=== PATIENT | male | born 1935 | race Caucasian/White ===

== ENCOUNTER 2019-12-16 21:12 | Inpatient (IN) ==
[2019-12-16] MEDS ORDERED: SODIUM CHLORIDE 0.9% 1000ML 500 ML IV ONE (21:32)
--- NOTE | 2019-12-16 21:36 | Emergency Department Note ---
Impression & Plan Hematoma of left flank, Fall, Elevated INR ED Provider Note NAME: BEAU HUMPHREY AGE: 84 SEX: M : 1935 ARRIVES VIA: Ambulance INFORMANT: Patient, ED PROVIDER(S): Zachery Solano MD Chief Complaint: Fall, flank pain HPI: Patient does present from home. The patient has had increasing weakness with a recent fall. The patient states he is fallen approximate 5 times of the last 5 days. The patient does complain of some one-sided flank pain. Patient states it is been constant. The patient states that he fell around 545 this evening. Patient states his appetite is been okay. 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 He does see Dr. De Leon. The patient did not take any pain medication prior to arrival. The patient does take Coumadin. ROS: See HPI for pertinent positives and negatives. A total of 10 systems were reviewed and otherwise negative. Past medical history: See below Surgical history: See below Social history: See below Physical Exam: GENERAL: NAD, non-toxic. Wearing a mask. EYE EXAM: Normal conjunctiva. PERRL, no anisocoria and EOM's grossly intact w/o pain. NECK: Missing numerous upper teeth, no obvious deformity. FROM of the neck with good chin to chest and neck extension. No stridor. Patient does have irritation to the skin with granulation tissue. LUNGS: Clear to auscultation. Normal chest wall mechanics. HEART: NSR, no MRG. ABDOMEN: Abdomen soft, non-tender, normo-active bowel sounds, no masses, no re bound or guarding. BACK: No CVA TTP. SKIN: Patient does have bruising to the bilateral flank. Hematoma and pain to left flank. UPPER EXTREMITIES: Upper extremities are grossly normal. LOWER EXTREMITIES: Deformity and shortening of the right ankle. Good DP pulse. No swelling. Good and equal symmetric strength bilaterally in the lower extremities. No sensory deficits. NEURO EXAM: A&O x3, cranial nerves II-XII grossly intact, normal speech, moves all 4 extremities on command w/o issue. Differential diagnoses: Fracture, dislocation, contusion, intra-abdominal, pneumothorax, intrathoracic, intracranial, neurologic, compartment syndrome, rhabdomyolysis, as well as other pathologies. Course: Patient was seen and evaluated the bedside. A full history and physical exam was performed. EKG: Indication: Fall, weakness A. fib, rate of 95, normal QRS, left axis deviation, no ST changes. Imaging Studies: Radiology results as stated below per my review in the radiologist's interpretation: CT head/brain wo con CT DOSE: HISTORY: Trauma multiple falls on coumadin TECHNIQUE: Multiaxial CT images of the head were performed without the use of intravenous contrast. A dose lowering technique was utilized adhering to the principles of ALARA. Comparison: None. Findings: The paranasal sinuses and mastoid air cells are clear. The calvarium and skull base are intact. The ventricles and sulci are within normal limits. There is no mass, hematoma, midline shift, or acute infarct. Considerable atrophy and small vessel change. No acute intracranial hemorrhage. Impression: No acute intracranial abnormality. Considerable atrophy and chronic small vessel change. ACT 112: Negative or not required by law. The above report was generated using voice recognition software. It may contain grammatical, syntax or spelling errors. Electronically signed by: Gildardo Cole M.D. 12/16/2019 10:23 PM Dictated: 12/16/192220 Transcribed: 12/16/192220 CT chest w con CT DOSE: 1948.12 mGy.cm HISTORY: Trauma multiple falls on coumadin TECHNIQUE: Multiaxial CT images of the chest were performed following the intravenous administration of contrast. A dose lowering technique was utilized adhering to the principles of ALARA. COMPARISON: None. FINDINGS: Severe degenerative change of the shoulders bilaterally. Probable bilateral degenerative joint effusions. Lungs are considered clear. Mild esophageal distention possibly on the basis of reflux. No significant hilar or mediastinal adenopathy. Mild dependent bibasilar atelectatic change. Significant degenerative change of the low thoracic region. No evidence for a compression deformity. IMPRESSION: 1. No acute process of the chest. 2. Significant degenerative change of the low thoracic spine with no evidence for compression deformity. 3. Severe degenerative change of the shoulders bilaterally with evidence for moderate degenerative joint effusions bilaterally. 4. Mild esophageal distention with moderate contained debris suggesting probable reflux. ACT 112: Negative or not required by law. The above report was generated using voice recognition software. It may contain grammatical, syntax or spelling errors. Electronically signed by: Gildardo Cole M.D. 12/16/2019 10:29 PM Dictated: 12/16/192224 Transcribed: 12/16/192224 CT cervical spine wo con CT DOSE: HISTORY: Trauma multiple falls on coumadin TECHNIQUE: Multiaxial CT images of the cervical spine were performed and reformatted in the sagittal and coronal plane without the use of contrast. A dose lowering technique was utilized adhering to the principles of ALARA. COMPARISON: None. FINDINGS: No fractures. No subluxation. Prevertebral soft tissues and the C1-C2 interval are intact. No pneumothorax. Considerable degenerative disc changes throughout. Considerable degenerative change vertebral endplates. No evidence fo r compression deformity. IMPRESSION: Considerable degenerative change. No acute process. ACT 112: Negative or not required by law. The above report was generated using voice recognition software. It may contain grammatical, syntax or spelling errors. Electronically signed by: Gildardo Cole M.D. 12/16/2019 10:25 PM Dictated: 12/16/192222 Transcribed: 12/16/192222 CT abd pelvis IV con only CT DOSE: HISTORY: Pain multiple falls on coumadin, hematoma L flank TECHNIQUE: Multiaxial CT images of the abdomen and pelvis were performed following the use of intravenous contrast. A dose lowering technique was utilized adhering to the principles of ALARA. COMPARISON STUDY: None. FINDINGS: Minimal dependent basilar atelectasis. The liver spleen and pancreas are grossly unremarkable. Kidneys show moderate cortical scarring bilaterally. Prior cholecystectomy. Nonobstructive bowel pattern. No free fluid within the abdomen or pelvic region. Bladder is midline. Mild rectal fecal impaction. Subcutaneous hematoma overlying the left flank lateral to the left iliac wing measuring approximately 12 x 10 x 8 cm. Severe degenerative change of the lumbar spine with no evidence for compression fracture. All remaining bony structures show degenerative changes throughout. IMPRESSION: 1. Large hematoma subcutaneous tissues left flank lateral to left iliac wing. 2. This measures 12 x 10 x 8 cm 3. 2 small foci of increased density within the hematoma which potentially indic ate a small amount of residual bleeding. .. 4. Moderate rectal fecal impaction. . 5. Otherwise no additional acute process of the abdomen or pelvis. ACT 112: Negative or not required by law. The above report was generated using voice recognition software. It may contain grammatical, syntax or spelling errors. Electronically signed by: Gildardo Cole M.D. 12/16/2019 10:36 PM Dictated: 12/16/192228 Transcribed: 12/16/192228 Cardiac monitoring: An order was placed for continuous cardiac monitoring. The monitor shows a rate of 95 with atrial fibrillation rhythm. MDM: Patient was seen and evaluated the bedside. The patient does present with concern for fall and flank pain with associated hematoma. The patient does use Coumadin. Blood work was obtained along with blood cultures. Patient did have CTs of the head neck chest abdomen and pelvis. Patient's blood work shows hemoglobin of almost 11. Prior was 14. Patient CT the head neck and chest unremarkable. CT abdomen pelvis does show the patient does have a large hematoma. There may be some trace residual bleeding. Given the patient's drop in hemoglobin and supratherapeutic INR I did speak with Dr. Santizo do we did agree that the patient would benefit from Kcentra. Vitamin K was also ordered. I did speak with the on-call hospitalist given the concern that the patient only has a hematoma and if you would be willing to see the patient as the patient has no other acute traumatic abnormality is currently not hypotensive and did receive vitamin K and was actively receiving Kcentra. He agreed to see the patient at this time. I believe this is reasonable as the patient has no other acute traumatic injury. The patient does have an old deformity of the right ankle but this is chronic per the patient. Patient has good DP pulses there as well. Patient's EKG is unchanged as the patient has a known history of A. fib. Past Med/Surg History Medical History A-fib Acquired ankle deformity Astigmatism Carpal tunnel syndrome left DDD (degenerative disc disease) Diverticulosis Frozen shoulder Ganglion left wrist / surgery GERD (gastroesophageal reflux disease) History of tongue cancer NOME (hard of hearing) HTN (hypertension) Impaired glucose tolerance Impotence Internal hemorrhoids Intestinal disaccharidase deficiency Kidney disease, chronic, stage III (GFR 30-59 ml/min) Mild pulmonary hypertension Osteoarthritis Overweight Presbyopia Sensorineural hearing loss Squamous cell carcinoma Surgical History H/O carpal tunnel repair bilateral surgery H/O glossectomy surgery 10/2018 History of radical dissection of left side of neck surgery 10/2018 History of repair of inguinal hernia History of shoulder surgery surgery many years ago / it healed improperly S/P cholecystectomy S/P tonsillectomy and adenoidectomy Family History Mother , age 77 Breast cancer metastatic to bone Father , age 83 Myocardial infarction Brother No problems noted. Daughter No problems noted. Son No problems noted. Son No problems noted. 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 Feels Safe at Home: Yes Smoking Status: Never smoker Hx Alcohol Use: Yes Alcohol type: beer Alcohol type Comment: occasional beer / social drinker Hx Substance Use: No Allergies Allergies Allergy/AdvReac Type Severity Reaction Status Date / Time oxycodone Allergy Severe Hallucinati Verified 12/16/19 21:36 ng peanut Allergy Severe Anaphylaxis Verified 12/16/19 21:36 Home Meds Home Medications Medication Instructions Recorded Confirmed aspirin [Aspirin Low Dose] 81 mg PO QAM 10/19/18 12/16/19 docusate sodium [Stool Softener] 100 mg PO QAM 10/19/18 12/16/19 enalapril maleate 20 mg PO QAM 10/19/18 12/16/19 glucosamine-chondroitin 1 tab PO QAM 10/19/18 12/16/19 lactobacillus combination no.4 3,000 mmu cells PO QAM 10/19/18 12/16/19 [Probiotic] metoprolol tartrate 50 mg PO BID 10/19/18 12/16/19 multivitamin 1 tab PO QAM 10/19/18 12/16/19 omeprazole 20 mg PO QAM 10/19/18 12/16/19 warfarin 2.5 mg PO UD 10/19/18 11/18/19 acetaminophen [Tylenol Extra 500 mg PO Q6H PRN 09/24/19 12/16/19 Strength] amlodipine 2.5 mg PO QAM 09/24/19 12/16/19 Mbxc 2 tsp PO ACHS PRN 12/16/19 12/16/19 Previous Rx's Medication Instructions Recorded acetaminophen 300 mg-codeine 30 mg 1 tab PO Q6H PRN #30 tab 10/21/19 tablet silver sulfadiazine 1 % topical 1 applic TOP BID #85 gm 11/11/19 cream tramadol 50 mg tablet 100 mg PO Q8H PRN #60 tab 11/26/19 Results & Data (ED) Vital Signs Vital Signs - 24 hr 12/16/19 21:20 12/16/19 21:23 12/16/19 23:24 Temperature 36.9 C Temperature Source Oral Pulse Rate 91 H 90 Pulse Rate [Apical] 90 Respiratory Rate 24 18 16 Respiratory Effort / Characteristics Non-Labored Spontaneous Non-Labored Spontaneous Respiratory Depth Normal Normal Blood Pressure 90/74 L 118/88 Blood Pressure [Left Arm] 140/99 Blood Pressure Mean 79 100 Blood Pressure Mean [Left Arm] 112 Blood Pressure Position Sitting Blood Pressure Position [Left Arm] Sitting Pulse Oximetry 95 94 Oxygen Delivery Method Room Air Room Air Sepsis Recent Fever Within 48 Hours No Sepsis Action Taken by Nursing No Action Required Home Medications Current Medication List: was personally reviewed by me Laboratory Data Attestation: I reviewed the patient's lab results. Result diagrams: 12/16/19 22:50 12/16/19 22:50 Lab Results 12/16/19 12/16/19 12/16/19 Range/Units 22:50 22:50 22:50 WBC 6.69 (4.8-10.8) K/uL RBC 3.39 L (4.7-6.1) M/uL Hgb 10.9 L (14.0-18.0) g/dL Hct 33.1 L (42-52) % MCV 97.6 (80-100) fL MCH 32.2 (25-34) pg MCHC 32.9 (32-36) g/dL RDW Std Deviation 54.4 H (36.4-46.3) fL RDW Coeff of Matthias 15.4 H (11.5-14.5) % Plt Count 342 (130-400) K/uL MPV 9.1 (7.4-10.4) fL Immature Gran % (Auto) 0.1 % Neut % (Auto) 83.0 % Lymph % (Auto) 8.5 % [place] % (Auto) 8.2 % Eos % (Auto) 0.1 % Baso % (Auto) 0.1 % Immature Gran # (Auto) 0.01 (0.00-0.02) K/uL Neut # (Auto) 5.54 (1.4-6.5) K/uL Lymph # (Auto) 0.57 L (1.2-3.4) K/uL [place] # (Auto) 0.55 (0.11-0.59) K/uL Eos # (Auto) 0.01 (0-0.5) K/uL Baso # (Auto) 0.01 (0-0.2) K/uL PT 42.4 H (9.0-12.0) Seconds POC INR (0.9-1.1) INR 4.4 H (0.9-1.1) Sodium (136-145) mmol/L Potassium (3.5-5.1) mmol/L Chloride (98-107) mmol/L Carbon Dioxide (21-32) mmol/L Anion Gap (3-11) BUN (7-18) mg/dl Creatinine (0.6-1.4) mg/dl Est Cr Clr Drug Dosing Est GFR ( Amer) Est GFR (Non-Af Amer) BUN/Creatinine Ratio (10-20) Glucose (70-99) mg/dl Lactate 1.7 (0.4-2.0) mmol/L Calcium (8.5-10.1) mg/dl Total Bilirubin (0.2-1) mg/dl AST (15-37) U/L ALT (12-78) U/L Alkaline Phosphatase (45-117) U/L Troponin I (0-0.045) ng/ml Total Protein (6.4-8.2) gm/dl Albumin (3.4-5.0) gm/dl Globulin (2.5-4.0) gm/dl Albumin/Globulin Ratio (0.9-2) 12/16/19 12/16/19 Range/Units 22:50 22:57 WBC (4.8-10.8) K/uL RBC (4.7-6.1) M/uL Hgb (14.0-18.0) g/dL Hct (42-52) % MCV (80-100) fL MCH (25-34) pg MCHC (32-36) g/dL RDW Std Deviation (36.4-46.3) fL RDW Coeff of Matthias (11.5-14.5) % Plt Count (130-400) K/uL MPV (7.4-10.4) fL Immature Gran % (Auto) % Neut % (Auto) % Lymph % (Auto) % [place] % (Auto) % Eos % (Auto) % Baso % (Auto) % Immature Gran # (Auto) (0.00-0.02) K/uL Neut # (Auto) (1.4-6.5) K/uL Lymph # (Auto) (1.2-3.4) K/uL [place] # (Auto) (0.11-0.59) K/uL Eos # (Auto) (0-0.5) K/uL Baso # (Auto) (0-0.2) K/uL PT (9.0-12.0) Seconds POC INR 4.5 H (0.9-1.1) INR (0.9-1.1) Sodium 135 L (136-145) mmol/L Potassium 4.5 (3.5-5.1) mmol/L Chloride 100 (98-107) mmol/L Carbon Dioxide 30 (21-32) mmol/L Anion Gap 5.0 (3-11) BUN 18 (7-18) mg/dl Creatinine 1.05 (0.6-1.4) mg/dl Est Cr Clr Drug Dosing Not Reportable Est GFR ( Amer) 75.2 Est GFR (Non-Af Amer) 64.9 BUN/Creatinine Ratio 17.0 (10-20) Glucose 149 H (70-99) mg/dl Lactate (0.4-2.0) mmol/L Calcium 9.0 (8.5-10.1) mg/dl Total Bilirubin 0.7 (0.2-1) mg/dl AST 27 (15-37) U/L ALT 23 (12-78) U/L Alkaline Phosphatase 88 (45-117) U/L Troponin I < 0.015 (0-0.045) ng/ml Total Protein 6.4 (6.4-8.2) gm/dl Albumin 2.6 L (3.4-5.0) gm/dl Globulin 3.8 (2.5-4.0) gm/dl Albumin/Globulin Ratio 0.7 L (0.9-2) Administered Medications Prothrombin Complex Concent ( (Human) 2,500 units/ Syringe) 100 mls @ 10 mls/min IV TODAY@2330 [facility]; Protocol Stop: 12/16/19 23:59 Last Admin: 12/16/19 23:28 Dose: 10 mls/min Documented by: [id number] Ioversol (Optiray 320 100ml) 93 ml IV ONCE PRN PRN Reason: Interaction Checking Stop: 12/20/19 21:37 Last Admin: 12/16/19 21:39 Dose: 93 ml Documented by: [id number] Discontinued Medications Sodium Chloride (Nss 1000ml) 500 mls @ 999 mls/hr IV .Q31M ONE Stop: 12/16/19 22:02 Last Admin: 12/16/19 23:13 Dose: 999 mls/hr Documented by: [id number] Miscellaneous Information (Dc All Anticoagulants) 1 ea N/A NOW ONE Stop: 12/16/19 23:10 Last Admin: 12/16/19 23:22 Dose: 1 ea Documented by: [id number] Blood Pressure Blood Pressure Findings: Elevated blood pressure Blood Pressure Disposition: further management by hospitalist Discharge Plan Visit Data Chief Complaint: Fall Stated Complaint: FALL, WEAKER, HEMATOMA ON L SIDE ED Provider: Zachery Solano Discharge Problem: Hematoma of left flank, Fall, Elevated INR Forms Stand Alone Forms: [employer] Prescriptions Prescriptions: No Action acetaminophen-codeine [Tylenol-Codeine #3] 300-30 mg tablet 1 tab PO Q6H PRN (Reason: pain) Qty: 30 RF: 1 silver sulfadiazine [Silvadene] 1 % cream 1 applic TOP BID Qty: 85 RF: 3 tramadol 50 mg tablet 100 mg PO Q8H PRN (Reason: pain) Qty: 60 RF: 0 multivitamin Tablet 1 tab PO QAM RF: 0 enalapril maleate 20 mg tablet 20 mg PO QAM RF: 0 warfarin 2.5 mg tablet 2.5 mg PO UD RF: 0 aspirin [Aspirin Low Dose] 81 mg Tablet,Delayed Release (Dr/Ec) 81 mg PO QAM RF: 0 metoprolol tartrate 50 mg tablet 50 mg PO BID RF: 0 docusate sodium [Stool Softener] 100 mg Capsule 100 mg PO QAM RF: 0 omeprazole 20 mg Capsule,Delayed Release(Dr/Ec) 20 mg PO QAM RF: 0 glucosamine-chondroitin 250-200 mg Tablet 1 tab PO QAM RF: 0 Probiotic 3 billion cell Capsule 3,000 mmu cells PO QAM RF: 0 amlodipine 2.5 mg tablet 2.5 mg PO QAM RF: 0 acetaminophen [Tylenol Extra Strength] 500 mg Tablet 500 mg PO Q6H PRN (Reason: Pain) RF: 0 Mbxc 2 tsp PO ACHS PRN (Reason: unk) RF: 0 Discharge Problem: Hematoma of left flank Qualifiers: Encounter type: initial encounter Qualified Code(s): S30.1XXA - Contusion of abdominal wall, initial encounter Fall Qualifiers: Encounter type: initial encounter Qualified Code(s): W19.XXXA - Unspecified fall, initial encounter
[2019-12-16] MEDS ORDERED: IOVERSOL 100ml IV PRN (21:38)
--- NOTE | 2019-12-16 22:24 | CT Scan Report ---
CT head/brain wo con CT DOSE: HISTORY: Trauma multiple falls on coumadin TECHNIQUE: Multiaxial CT images of the head were performed without the use of intravenous contrast. A dose lowering technique was utilized adhering to the principles of ALARA. Comparison: None. Findings: The paranasal sinuses and mastoid air cells are clear. The calvarium and skull base are int act. The ventricles and sulci are within normal limits. There is no mass, hematoma, midline shift, or acute infarct. Considerable atrophy and small vessel change. No acute intracranial hemorrhage. Impression: No acute intracranial abnormality. Considerable atrophy and chronic small vessel change. ACT 112: Negative or not required by law. The above report was generated using voice recognition software. It may contain grammatical, syntax or spelling errors. Electronically signed by: Gildardo Cole M.D. 12/16/2019 10:23 PM
--- NOTE | 2019-12-16 22:26 | CT Scan Report ---
CT cervical spine wo con CT DOSE: HISTORY: Trauma multiple falls on coumadin TECHNIQUE: Multiaxial CT images of the cervical spine were performed and reformatted in the sagittal and coronal plane without the use of contrast. A dose lowering technique was utilized adhering to th e principles of ALARA. COMPARISON: None. FINDINGS: No fractures. No subluxation. Prevertebral soft tissues and the C1-C2 interval are intact. No pneumothorax. Considerable degenerative disc changes throughout. Considerable degenerative change vertebral endplates. No evidence for compression deformity. IMPRESSION: Considerable degenerative change. No acute process. ACT 112: Negative or not required by law. The above report was generated using voice recognition software. It may contain grammatical, syntax or spelling errors. Electronically signed by: Gildardo Cole M.D. 12/16/2019 10:25 PM
--- NOTE | 2019-12-16 22:31 | CT Scan Report ---
CT chest w con CT DOSE: 1948.12 mGy.cm HISTORY: Trauma multiple falls on coumadin TECHNIQUE: Multiaxial CT images of the chest were performed following the intravenous administration of contrast. A dose lowering technique was utilized adhering to the principles of ALARA. COMPARISON: None. FINDINGS: Severe degenerative change of the shoulders bilaterally. Probable bilateral degenerative suyapa int effusions. Lungs are considered clear. Mild esophageal distention possibly on the basis of reflux. No significan t hilar or mediastinal adenopathy. Mild dependent bibasilar atelectatic change. Significant degenerative change of the low thoracic region. No evidence for a compression deformity. IMPRESSION: 1. No acute process of the chest. 2. Significant degenerative change of the low thoracic spine with no evidence for compression deformi ty. 3. Severe degenerative change of the shoulders bilaterally with evidence for moderate degenerative suyapa int effusions bilaterally. 4. Mild esophageal distention with moderate contained debris suggesting probable reflux. ACT 112: Negative or not required by law. The above report was generated using voice recognition software. It may contain grammatical, syntax or spelling errors. Electronically signed by: Gildardo Cole M.D. 12/16/2019 10:29 PM
--- NOTE | 2019-12-16 22:38 | CT Scan Report ---
CT abd pelvis IV con only CT DOSE: HISTORY: Pain multiple falls on coumadin, hematoma L flank TECHNIQUE: Multiaxial CT images of the abdomen and pelvis were performed following the use of intrave nous contrast. A dose lowering technique was utilized adhering to the principles of ALARA. COMPARISON STUDY: None. FINDINGS: Minimal dependent basilar atelectasis. The liver spleen and pancreas are grossly unremarkab le. Kidneys show moderate cortical scarring bilaterally. Prior cholecystectomy. Nonobstructive bowel pattern. No free fluid within the abdomen or pelvic region. Bladder is midline. Mild rectal fecal impaction. Subcutaneous hematoma overlying the left flank lateral to the left iliac wing measuring approximately 12 x 10 x 8 cm. Severe degenerative change of the lumbar spine with no evidence for compression fracture. All remaini ng bony structures show degenerative changes throughout. IMPRESSION: 1. Large hematoma subcutaneous tissues left flank lateral to left iliac wing. 2. This measures 12 x 10 x 8 cm 3. 2 small foci of increased density within the hematoma which potentially indicate a small amount of residual bleeding. .. 4. Moderate rectal fecal impaction. . 5. Otherwise no additional acute process of the abdomen or pelvis. ACT 112: Negative or not required by law. The above report was generated using voice recognition software. It may contain grammatical, syntax or spelling errors. Electronically signed by: Gildardo Cole M.D. 12/16/2019 10:36 PM
[2019-12-16 23:05] LABS: Basophils # (auto) 0.01 K/uL (0-0.2); Basophils % (auto) 0.1 %; Eosinophils # (auto) 0.01 K/uL (0-0.5); Eosinophils % (auto) 0.1 %; Hematocrit (blood only) 33.1 % (42-52); Hemoglobin 10.9 g/dL (14.0-18.0); Immature Granulocytes # (auto) 0.01 K/uL (0.00-0.02); Immature Granulocytes % (auto) 0.1 %; Lymphocytes # (auto) 0.57 K/uL (1.2-3.4); Lymphocytes % (auto) 8.5 %; Mean Corpuscular Hemoglobin 32.2 pg (25-34); Mean Corpuscular Hgb Conc 32.9 g/dL (32-36); Mean Corpuscular Volume 97.6 fL (80-100); Mean Platelet Volume 9.1 fL (7.4-10.4); Monocytes # (auto) 0.55 K/uL (0.11-0.59); Monocytes % (auto) 8.2 %; Neutrophils # (auto) 5.54 K/uL (1.4-6.5); Platelet Count 342 K/uL (130-400); RDW Coefficient of Variation 15.4 % (11.5-14.5); RDW Standard Deviation 54.4 fL (36.4-46.3); Red Blood Count 3.39 M/uL (4.7-6.1); White Blood Count 6.69 K/uL (4.8-10.8)
[2019-12-16] MEDS ORDERED: DC ALL ANTICOAGULANTS ONE (23:09)
[2019-12-16] MEDS ORDERED: PHYTONADIONE 10 MG in SODIUM CHLORIDE 0.9% 50 ML IV ONE (23:14)
[2019-12-16 23:22] LABS: Alanine Aminotransferase 23 U/L (12-78); Albumin Level 2.6 gm/dl (3.4-5.0); Aspartate Aminotransferase 27 U/L (15-37); Blood Urea Nitrogen 18 mg/dl (7-18); Carbon Dioxide 30 mmol/L (21-32); Chloride 100 mmol/L (98-107); Est GFR (African American) 75.2; Est GFR (Non-African American) 64.9; Glucose 149 mg/dl (70-99); Potassium 4.5 mmol/L (3.5-5.1); Sodium 135 mmol/L (136-145)
[2019-12-16 23:23] LABS: INR 4.4 (0.9-1.1); Prothrombin Time 42.4 Seconds (9.0-12.0)
[2019-12-16 23:27] LABS: Albumin Globulin Ratio 0.7 (0.9-2); Alkaline Phosphatase 88 U/L (45-117); Bilirubin,Total 0.7 mg/dl (0.2-1); Globulin 3.8 gm/dl (2.5-4.0); Total Protein 6.4 gm/dl (6.4-8.2); Troponin I < 0.015 ng/ml (0-0.045)
[2019-12-16] MEDS ORDERED: PROTHROMBIN COMP CONC- KCENTRA 2,500 UNITS in SYRINGE 0 ML IV SCH (23:30)
--- NOTE | 2019-12-16 23:32 | History & Physical Report ---
Date of Service December 16, 2019 Assessment & Plan (1) Hematoma of left flank: Secondary to Coumadin coagulopathy AF on Coumadin, rate controlled Recurrent falls, ambulatory dysfunction Anemia secondary to above hypertension, slight elevated secondary discomfort tongue cancer status post surgery, chemoradiation with recurrent neck disease status post chemoradiation. prediabetes as per records hemoglobin A1c of 6.05 October 2018 Chronic cough possibly from aspiration risk Medical telemetry Prudent to stop Coumadin given fall risk Serial H&H, transfuse PRBC if hemoglobin less than 7 and or for symptomatic anemia Analgesia, facilitate home BP meds Swallow eval PT OT eval DVT prophylaxis SCDs RE hematoma Full code Text document was generated using [employer] voice recognition software. It may contain grammatical or spelling errors. Kindly contact undersigned for clarification of any documentation item in question. History of Present Illness Chief Complaint: Recurrent falls Primary Care Provider: Yogi Bonilla MD History obtained from patient and records. Medical history significant for A. fib on Coumadin, pulmonary hypertension as per records, hypertension, tongue cancer status post surgery, chemoradiation with recurrent neck disease status post chemoradiation. prediabetes as per records. Patient developed new onset A. fib. during confinement at [facility] for neck dissection/glossectomy 2018. Seen by [facility] tellers supervisor on consultation. Patient discharged on Coumadin. Has not seen a tellers supervisor outpatient for follow-up. The last few days patient noted increasing weakness and recurrent falls with some head trauma. No chest pain, no S OB, no LOC. Chronic junky cough symptoms. No black/bloody stools. Subsequently noted achy flank pain. Headache symptoms from bump in the head. Patient brought to the ER for evaluation. Vitamin K and Kcentra administered at the ER for coagulopathy, INR of 4.5. 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 Allergies Allergy/AdvReac Type Severity Reaction Status Date / Time oxycodone Allergy Severe Hallucinati Verified 12/16/19 21:36 ng peanut Allergy Severe Anaphylaxis Verified 12/16/19 21:36 Home Medications Home Medications Medication Instructions Recorded Confirmed Type aspirin [Aspirin Low Dose] 81 mg PO QAM 10/19/18 12/16/19 History docusate sodium [Stool Softener] 100 mg PO QAM 10/19/18 12/16/19 History enalapril maleate 20 mg PO QAM 10/19/18 12/16/19 History glucosamine-chondroitin 1 tab PO QAM 10/19/18 12/16/19 History lactobacillus combination no.4 3,000 mmu cells PO QAM 10/19/18 12/16/19 History [Probiotic] metoprolol tartrate 50 mg PO BID 10/19/18 12/16/19 History multivitamin 1 tab PO QAM 10/19/18 12/16/19 History omeprazole 20 mg PO QAM 10/19/18 12/16/19 History warfarin 2.5 mg PO UD 10/19/18 11/18/19 History acetaminophen [Tylenol Extra 500 mg PO Q6H PRN 09/24/19 12/16/19 History Strength] amlodipine 2.5 mg PO QAM 09/24/19 12/16/19 History acetaminophen 300 mg-codeine 30 mg 1 tab PO Q6H PRN #30 tab 10/21/19 12/16/19 Rx tablet silver sulfadiazine 1 % topical 1 applic TOP BID #85 gm 11/11/19 12/16/19 Rx cream tramadol 50 mg tablet 100 mg PO Q8H PRN #60 tab 11/26/19 12/16/19 Rx Mbxc 2 tsp PO ACHS PRN 12/16/19 12/16/19 History Past Med/Surg History Medical History A-fib Acquired ankle deformity Astigmatism Carpal tunnel syndrome left DDD (degenerative disc disease) Diverticulosis Frozen shoulder Ganglion left wrist / surgery GERD (gastroesophageal reflux disease) History of tongue cancer [place] (hard of hearing) HTN (hypertension) Impaired glucose tolerance Impotence Internal hemorrhoids Intestinal disaccharidase deficiency Kidney disease, chronic, stage III (GFR 30-59 ml/min) Mild pulmonary hypertension Osteoarthritis Overweight Presbyopia Sensorineural hearing loss Squamous cell carcinoma Surgical History H/O carpal tunnel repair bilateral surgery H/O glossectomy surgery 10/2018 History of radical dissection of left side of neck surgery 10/2018 History of repair of inguinal hernia History of shoulder surgery surgery many years ago / it healed improperly S/P cholecystectomy S/P tonsillectomy and adenoidectomy Family History Mother , age 77 Breast cancer metastatic to bone Father , age 83 Myocardial infarction Brother No problems noted. Daughter No problems noted. Son No problems noted. Son No problems noted. 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 Other Information That Helps Us Care for You: No Feels Safe at Home: Yes Safety Concerns: Feels Safe At This Time Smoking Status: Never smoker Do You Dip or Chew Tobacco: No ; Second Hand Exposure: Yes ; Hx Alcohol Use: Yes Alcohol type: beer Alcohol type Comment: occasional beer / social drinker Hx Substance Use: No Review of Systems Review of Systems: As per HPI, all 10 systems reviewed, all other ROS negative Physical Exam Physical Exam: GENERAL: Comfortable, pleasant, slightly hard of hearing, no respiratory distress SKIN: Pallor , warm HEENT: Contusion left forehead, pale palpebral conjunctivae, no ptosis, chronic facial asymmetry, dry buccal mucosa NECK : Healed incisional scar, some limitation in motion , no tenderness CHEST : Decreased breath sounds , no tenderness HEART : irregular, no obvious murmurs ABDOMEN: Soft, nontender BACK : Ecchymoses both flanks left greater than the right EXTREMITIES : Minimal LE swelling, no LE tenderness, no other conspicuous deformities noted NEUROLOGIC : Coherent, chronic facial asymmetry, slightly hard of hearing, mild dysarthria (chronic ), gait and stance not assessed Results & Data Results & [facility] ([facility]) Vital Signs (Past 12 Hours) Vital Signs Temp Pulse Pulse Resp BP BP Pulse Ox 12/16/19 23:24 90 16 140/99 94 12/16/19 21:23 90 18 118/88 12/16/19 21:20 36.9 C 91 H 24 90/74 L 95 Laboratory Results Laboratory Results WBC 6.69 K/uL (4.8-10.8) 12/16/19 22:50 RBC 3.39 M/uL (4.7-6.1) L 12/16/19 22:50 Hgb 10.9 g/dL (14.0-18.0) L 12/16/19 22:50 Hct 33.1 % (42-52) L 12/16/19 22:50 MCV 97.6 fL (80-100) 12/16/19 22:50 MCH 32.2 pg (25-34) 12/16/19 22:50 MCHC 32.9 g/dL (32-36) 12/16/19:50 RDW Std Deviation 54.4 fL (36.4-46.3) H 12/16/19:50 RDW Coeff of Matthias 15.4 % (11.5-14.5) H 12/16/19:50 Plt Count 342 K/uL (130-400) 12/16/19:50 MPV 9.1 fL (7.4-10.4) 12/16/19 22:50 Immature Gran % (Auto) 0.1 % 12/16/19 22:50 Neut % (Auto) 83.0 % 12/16/19 22:50 Lymph % (Auto) 8.5 % 12/16/19 22:50 [place] % (Auto) 8.2 % 12/16/19 22:50 Eos % (Auto) 0.1 % 12/16/19 22:50 Baso % (Auto) 0.1 % 12/16/19 22:50 Immature Gran # (Auto) 0.01 K/uL (0.00-0.02) 12/16/19 22:50 Neut # (Auto) 5.54 K/uL (1.4-6.5) 12/16/19 22:50 Lymph # (Auto) 0.57 K/uL (1.2-3.4) L 12/16/19 22:50 [place] # (Auto) 0.55 K/uL (0.11-0.59) 12/16/19 22:50 Eos # (Auto) 0.01 K/uL (0-0.5) 12/16/19 22:50 Baso # (Auto) 0.01 K/uL (0-0.2) 12/16/19 22:50 PT 42.4 Seconds (9.0-12.0) H 12/16/19 22:50 POC INR 4.5 (0.9-1.1) H 12/16/19 22:57 INR 4.4 (0.9-1.1) H 12/16/19 22:50 Sodium 135 mmol/L (136-145) L 12/16/19 22:50 Potassium 4.5 mmol/L (3.5-5.1) 12/16/19 22:50 Chloride 100 mmol/L (98-107) 12/16/19 22:50 Carbon Dioxide 30 mmol/L (21-32) 12/16/19 22:50 Anion Gap 5.0 (3-11) 12/16/19 22:50 BUN 18 mg/dl (7-18) 12/16/19 22:50 Creatinine 1.05 mg/dl (0.6-1.4) 12/16/19 22:50 Est Cr Clr Drug Dosing Not Reportable 12/16/19 22:50 Est GFR ( Amer) 75.2 12/16/19 22:50 Est GFR (Non-Af Amer) 64.9 12/16/19 22:50 BUN/Creatinine Ratio 17.0 (10-20) 12/16/19 22:50 Glucose 149 mg/dl (70-99) H 12/16/19 22:50 Lactate 1.7 mmol/L (0.4-2.0) 12/16/19 22:50 Calcium 9.0 mg/dl (8.5-10.1) 12/16/19 22:50 Total Bilirubin 0.7 mg/dl (0.2-1) 12/16/19 22:50 AST 27 U/L (15-37) 12/16/19 22:50 ALT 23 U/L (12-78) 12/16/19 22:50 Alkaline Phosphatase 88 U/L (45-117) 12/16/19 22:50 Troponin I < 0.015 ng/ml (0-0.045) 12/16/19 22:50 Total Protein 6.4 gm/dl (6.4-8.2) 12/16/19 22:50 Albumin 2.6 gm/dl (3.4-5.0) L 12/16/19 22:50 Globulin 3.8 gm/dl (2.5-4.0) 12/16/19 22:50 Albumin/Globulin Ratio 0.7 (0.9-2) L 12/16/19 22:[address] head: No acute intracranial abnormality. Considerable atrophy and chronic small vessel change. CT cervical spine Considerable degenerative change. No acute process. CT chest: 1. No acute process of the chest. 2. Significant degenerative change of the low thoracic spine with no evidence for compression deformity. 3. Severe degenerative change of the shoulders bilaterally with evidence for moderate degenerative joint effusions bilaterally. 4. Mild esophageal distention with moderate contained debris suggesting probable reflux. CT abdomen pelvis: 1. Large hematoma subcutaneous tissues left flank lateral to left iliac wing. 2. This measures 12 x 10 x 8 cm 3. 2 small foci of increased density within the hematoma which potentially indicate a small amount of residual bleeding. 4. Moderate rectal fecal impaction. 5. Otherwise no additional acute process of the abdomen or pelvis. EKG as per my interpretation: Rate 95, A. fib, LAD, LAFB, T wave abnormality septal leads (1) Hematoma of left flank Encounter type: initial encounter Qualified Code(s): S30.1XXA - Contusion of abdominal wall, initial encounter
[2019-12-17] MEDS ORDERED: TRAMADOL HCL 50 MG TABLET PO STA (00:10)
[2019-12-17 00:29] LABS: Magnesium 1.7 mg/dl (1.8-2.4)
[2019-12-17] MEDS ORDERED: PROMETHAZINE HCL 12.5 MG in SODIUM CHLORIDE 0.9% 50 ML IV PRN (01:19)
[2019-12-17] MEDS ORDERED: TRAMADOL HCL 50 MG TABLET PO PRN (01:19)
[2019-12-17] MEDS ORDERED: MoRPHine SULFATE 2 MG/ML CARP IV PRN (01:29)
[2019-12-17] MEDS ORDERED: MAGNESIUM SULFATE / D5W 1 GM/100 ML BAG IV ONE (02:45)
[2019-12-17 04:23] LABS: Basophils # (auto) 0.01 K/uL (0-0.2); Basophils % (auto) 0.2 %; Eosinophils # (auto) 0.08 K/uL (0-0.5); Eosinophils % (auto) 1.6 %; Immature Granulocytes # (auto) 0.01 K/uL (0.00-0.02); Immature Granulocytes % (auto) 0.2 %; Lymphocytes # (auto) 0.75 K/uL (1.2-3.4); Lymphocytes % (auto) 14.7 %; Mean Corpuscular Hemoglobin 32.7 pg (25-34); Mean Corpuscular Hgb Conc 33.3 g/dL (32-36); Mean Platelet Volume 8.9 fL (7.4-10.4); Monocytes % (auto) 9.8 %; Neutrophils # (auto) 3.74 K/uL (1.4-6.5); Neutrophils % (auto) 73.5 %; Platelet Count 360 K/uL (130-400); RDW Coefficient of Variation 15.3 % (11.5-14.5); RDW Standard Deviation 54.6 fL (36.4-46.3); Red Blood Count 3.06 M/uL (4.7-6.1); White Blood Count 5.09 K/uL (4.8-10.8)
[2019-12-17 04:36] LABS: INR 1.1 (0.9-1.1); Prothrombin Time 11.9 Seconds (9.0-12.0)
[2019-12-17] MEDS ORDERED: POLYETHYLENE (MIRALAX) 17 GM PACK PO PRN (04:38)
[2019-12-17 04:45] LABS: BUN Creatinine Ratio 17.7 (10-20); Calcium 8.9 mg/dl (8.5-10.1); Est GFR (African American) 81.7; Est GFR (Non-African American) 70.5; Magnesium 2.1 mg/dl (1.8-2.4); Potassium 4.3 mmol/L (3.5-5.1)
[2019-12-17] MEDS: METOPROLOL TARTRATE 50 MG TAB PO SCH ×2 (05:04→20:30)
[2019-12-17 06:00] LABS: Estimated Average Glucose 157 mg/dl; Hemoglobin A1C 7.1 % (4.5-5.6)
--- NOTE | 2019-12-17 06:59 | Hospitalist Progress Note ---
Date of Service December 17, 2019 Assessment & Plan (1) Hematoma of left flank: Secondary to Coumadin coagulopathy AF on Coumadin, rate controlled Recurrent falls, ambulatory dysfunction Flank hematoma and pain - analgesia - INR reversed, may not be able to re-start coumadin d/t safety - Hgb stable, cont. to monitor Anemia secondary to above Serial H&H, transfuse PRBC if hemoglobin less than 7 and or for symptomatic anemia Currently Hgb stable above 10 INR reversed with Kcentra and vit.K Hold coumadin for now -will need to discuss w/family safety issues regarding coumadin/ ? does not seem to safe to re-start Recurrent falls - PT/OT consulted - recommend SNF/rehab - CM in contact w. pt's Isadora and plan dispo to [facility] Afib - rate controlled - coumadin held at this time and INR reversed - pt may not be a candidate to restart coumadin d/t falls Hypertension, slight elevated secondary discomfort - cont. to monitor Tongue SSC status post surgery, chemoradiation with recurrent neck disease status post chemoradiation. Prediabetes as per records hemoglobin A1c of 6.05 October 2018 - no acute issues - monitor BG Chronic cough possibly from aspiration risk Swallow eval PT OT eval - recommend SNF/ rehab Dispo - plan to d/c to [facility] once medically stable DVT prophylaxis SCDs RE hematoma Full code Admission and Anticipated Discharge Date Admission Date: December 16, 2019 Subjective INR reversed to 1.1, Hgb stable above 10 Pt sitting in bed, complains of left flank pain and seems confused. Per nursing staff pt called 911 from his room. He tells me that speech therapist came to see him but he does not believe that it was speech therapist. Also tells me that he is being held here against his will. He can not tell me where he is, and is surprised when I tell him that he is in [place]. Pt clearly uncomfortable and confused. I contacted his family and talked to daughter Vidhya (who also works as RN in [employer]) who tells me that he is usually clear in his mind, no known hx of dementia but occasionally gets confused edwin. in hospital. I then called Vidhya from pt's phone at the bedside so she could talk to her father. She was able to re-assure the pt and pt was clearly settled down after talking to her. Nursing staff aware to contact the family if pt becomes confused again. Review of Systems Review of Systems: All systems reviewed & are unremarkable except as noted in HPI & below As per HPI, all 10 systems reviewed, all other ROS negative Constitutional: no fever and no chills Respiratory: no cough and no dyspnea Cardiovascular: no chest pain, no palpitations and no edema Gastrointestinal: no abdominal pain, no nausea and no vomiting Musculoskeletal: Left flank pain Neurologic: + unsteadiness and + generalized weakness Physical Exam Physical Exam: GENERAL: elderly, chronically ill appearing male, sitting up in bed, in distress as he is confused HEENT: Contusion left forehead, pale palpebral conjunctivae, chronic facial asymmetry, dry buccal mucosa NECK : Healed incisional scar, chronic skin neck changes/ erythema (d/t radiation?), some limitation in motion CHEST : CTAB but somewhat decreased breath sounds , no wheezing, rhonchi, crackles HEART : irregular, no obvious murmurs ABDOMEN: Soft, nontender, nondistended, + bowel sounds BACK : Ecchymoses both flanks left greater than the right SKIN: Pallor , warm EXTREMITIES : Minimal LE swelling, no LE tenderness, moves extremities spontaneously NEUROLOGIC : awake but does not answer questions appropriately (does not believe medical providers are real med. providers/ mentions ppl on motorcycles that he has to meet, not aware where he is, feeling that he is held against his will here), speech generally fluent (chronic mild dysarthria), chronic facial as ymmetry, gait and stance not assessed Results & Data Results & Data ([facility]) Vital Signs (Past 12 Hours) Vital Signs Temp Pulse Pulse Pulse Resp BP BP 12/17/19 05:00 90 143/91 H 12/17/19 03:33 84 12/17/19 01:25 36.4 C 88 18 149/79 H 12/17/19 00:31 101 H 18 121/65 12/17/19 00:15 94 H 18 105/68 12/17/19 00:00 86 20 156/88 H 12/16/19 23:24 90 16 140/99 12/16/19 21:23 90 18 118/88 12/16/19 21:20 36.9 C 91 H 24 90/74 L Pulse Ox 12/17/19 05:00 12/17/19 03:33 12/17/19 01:25 93 12/17/19 00:31 100 12/17/19 00:15 98 12/17/19 00:00 100 12/16/19 23:24 94 12/16/19 21:23 12/16/19 21:20 95 Laboratory Results 12/17/19 12/17/19 12/17/19 Range/Units 03:52 03:52 03:52 WBC 5.09 (4.8-10.8) K/uL RBC 3.06 L (4.7-6.1) M/uL Hgb 10.0 L (14.0-18.0) g/dL Hct 30.0 L (42-52) % MCV 98.0 (80-100) fL MCH 32.7 (25-34) pg MCHC 33.3 (32-36) g/dL RDW Std Deviation 54.6 H (36.4-46.3) fL RDW Coeff of Matthias 15.3 H (11.5-14.5) % Plt Count 360 (130-400) K/uL MPV 8.9 (7.4-10.4) fL Immature Gran % (Auto) 0.2 % Neut % (Auto) 73.5 % Lymph % (Auto) 14.7 % [place] % (Auto) 9.8 % Eos % (Auto) 1.6 % Baso % (Auto) 0.2 % Immature Gran # (Auto) 0.01 (0.00-0.02) K/uL Neut # (Auto) 3.74 (1.4-6.5) K/uL Lymph # (Auto) 0.75 L (1.2-3.4) K/uL [place] # (Auto) 0.50 (0.11-0.59) K/uL Eos # (Auto) 0.08 (0-0.5) K/uL Baso # (Auto) 0.01 (0-0.2) K/uL PT 11.9 (9.0-12.0) Seconds POC INR (0.9-1.1) INR 1.1 (0.9-1.1) Sodium 136 (136-145) mmol/L Potassium 4.3 (3.5-5.1) mmol/L Chloride 102 (98-107) mmol/L Carbon Dioxide 31 (21-32) mmol/L Anion Gap 3.0 (3-11) BUN 17 (7-18) mg/dl Creatinine 0.98 (0.6-1.4) mg/dl Est Cr Clr Drug Dosing 52.0 Est GFR ( Amer) 81.7 Est GFR (Non-Af Amer) 70.5 BUN/Creatinine Ratio 17.7 (10-20) Glucose 127 H (70-99) mg/dl Estimat Average Glucose mg/dl Hemoglobin A1c (4.5-5.6) % Lactate (0.4-2.0) mmol/L Calcium 8.9 (8.5-10.1) mg/dl Magnesium 2.1 (1.8-2.4) mg/dl Total Bilirubin (0.2-1) mg/dl AST (15-37) U/L ALT (12-78) U/L Alkaline Phosphatase (45-117) U/L Troponin I (0-0.045) ng/ml Total Protein (6.4-8.2) gm/dl Albumin (3.4-5.0) gm/dl Globulin (2.5-4.0) gm/dl Albumin/Globulin Ratio (0.9-2) TSH (0.300-4.500) uIu/ml Blood Type Antibody Screen 12/16/19 12/16/19 12/16/19 Range/Units 22:57 22:50 22:50 WBC (4.8-10.8) K/uL RBC (4.7-6.1) M/uL Hgb (14.0-18.0) g/dL Hct (42-52) % MCV (80-100) fL MCH (25-34) pg MCHC (32-36) g/dL RDW Std Deviation (36.4-46.3) fL RDW Coeff of Matthias (11.5-14.5) % Plt Count (130-400) K/uL MPV (7.4-10.4) fL Immature Gran % (Auto) % Neut % (Auto) % Lymph % (Auto) % [place] % (Auto) % Eos % (Auto) % Baso % (Auto) % Immature Gran # (Auto) (0.00-0.02) K/uL Neut # (Auto) (1.4-6.5) K/uL Lymph # (Auto) (1.2-3.4) K/uL [place] # (Auto) (0.11-0.59) K/uL Eos # (Auto) (0-0.5) K/uL Baso # (Auto) (0-0.2) K/uL PT 42.4 H (9.0-12.0) Seconds POC INR 4.5 H (0.9-1.1) INR 4.4 H (0.9-1.1) Sodium 135 L (136-145) mmol/L Potassium 4.5 (3.5-5.1) mmol/L Chloride 100 (98-107) mmol/L Carbon Dioxide 30 (21-32) mmol/L Anion Gap 5.0 (3-11) BUN 18 (7-18) mg/dl Creatinine 1.05 (0.6-1.4) mg/dl Est Cr Clr Drug Dosing Not Reportable Est GFR ( Amer) 75.2 Est GFR (Non-Af Amer) 64.9 BUN/Creatinine Ratio 17.0 (10-20) Glucose 149 H (70-99) mg/dl Estimat Average Glucose mg/dl Hemoglobin A1c (4.5-5.6) % Lactate (0.4-2.0) mmol/L Calcium 9.0 (8.5-10.1) mg/dl Magnesium 1.7 L (1.8-2.4) mg/dl Total Bilirubin 0.7 (0.2-1) mg/dl AST 27 (15-37) U/L ALT 23 (12-78) U/L Alkaline Phosphatase 88 (45-117) U/L Troponin I < 0.015 (0-0.045) ng/ml Total Protein 6.4 (6.4-8.2) gm/dl Albumin 2.6 L (3.4-5.0) gm/dl Globulin 3.8 (2.5-4.0) gm/dl Albumin/Globulin Ratio 0.7 L (0.9-2) TSH 2.650 (0.300-4.500) uIu/ml Blood Type Antibody Screen 12/16/19 12/16/19 12/16/19 Range/Units 22:50 22:50 22:50 WBC 6.69 (4.8-10.8) K/uL RBC 3.39 L (4.7-6.1) M/uL Hgb 10.9 L (14.0-18.0) g/dL Hct 33.1 L (42-52) % MCV 97.6 (80-100) fL MCH 32.2 (25-34) pg MCHC 32.9 (32-36) g/dL RDW Std Deviation 54.4 H (36.4-46.3) fL RDW Coeff of Matthias 15.4 H (11.5-14.5) % Plt Count 342 (130-400) K/uL MPV 9.1 (7.4-10.4) fL Immature Gran % (Auto) 0.1 % Neut % (Auto) 83.0 % Lymph % (Auto) 8.5 % [place] % (Auto) 8.2 % Eos % (Auto) 0.1 % Baso % (Auto) 0.1 % Immature Gran # (Auto) 0.01 (0.00-0.02) K/uL Neut # (Auto) 5.54 (1.4-6.5) K/uL Lymph # (Auto) 0.57 L (1.2-3.4) K/uL [place] # (Auto) 0.55 (0.11-0.59) K/uL Eos # (Auto) 0.01 (0-0.5) K/uL Baso # (Auto) 0.01 (0-0.2) K/uL PT (9.0-12.0) Seconds POC INR (0.9-1.1) INR (0.9-1.1) Sodium (136-145) mmol/L Potassium (3.5-5.1) mmol/L Chloride (98-107) mmol/L Carbon Dioxide (21-32) mmol/L Anion Gap (3-11) BUN (7-18) mg/dl Creatinine (0.6-1.4) mg/dl Est Cr Clr Drug Dosing Est GFR ( Amer) Est GFR (Non-Af Amer) BUN/Creatinine Ratio (10-20) Glucose (70-99) mg/dl Estimat Average Glucose mg/dl Hemoglobin A1c (4.5-5.6) % Lactate 1.7 (0.4-2.0) mmol/L Calcium (8.5-10.1) mg/dl Magnesium (1.8-2.4) mg/dl Total Bilirubin (0.2-1) mg/dl AST (15-37) U/L ALT (12-78) U/L Alkaline Phosphatase (45-117) U/L Troponin I (0-0.045) ng/ml Total Protein (6.4-8.2) gm/dl Albumin (3.4-5.0) gm/dl Globulin (2.5-4.0) gm/dl Albumin/Globulin Ratio (0.9-2) TSH (0.300-4.500) uIu/ml Blood Type A Positive Antibody Screen NEGATIVE 12/16/19 Range/Units 07:30 WBC (4.8-10.8) K/uL RBC (4.7-6.1) M/uL Hgb (14.0-18.0) g/dL Hct (42-52) % MCV (80-100) fL MCH (25-34) pg MCHC (32-36) g/dL RDW Std Deviation (36.4-46.3) fL RDW Coeff of Matthias (11.5-14.5) % Plt Count (130-400) K/uL MPV (7.4-10.4) fL Immature Gran % (Auto) % Neut % (Auto) % Lymph % (Auto) % [place] % (Auto) % Eos % (Auto) % Baso % (Auto) % Immature Gran # (Auto) (0.00-0.02) K/uL Neut # (Auto) (1.4-6.5) K/uL Lymph # (Auto) (1.2-3.4) K/uL [place] # (Auto) (0.11-0.59) K/uL Eos # (Auto) (0-0.5) K/uL Baso # (Auto) (0-0.2) K/uL PT (9.0-12.0) Seconds POC INR (0.9-1.1) INR (0.9-1.1) Sodium (136-145) mmol/L Potassium (3.5-5.1) mmol/L Chloride (98-107) mmol/L Carbon Dioxide (21-32) mmol/L Anion Gap (3-11) BUN (7-18) mg/dl Creatinine (0.6-1.4) mg/dl Est Cr Clr Drug Dosing Est GFR ( Amer) Est GFR (Non-Af Amer) BUN/Creatinine Ratio (10-20) Glucose (70-99) mg/dl Estimat Average Glucose 157 mg/dl Hemoglobin A1c 7.1 H (4.5-5.6) % Lactate (0.4-2.0) mmol/L Calcium (8.5-10.1) mg/dl Magnesium (1.8-2.4) mg/dl Total Bilirubin (0.2-1) mg/dl AST (15-37) U/L ALT (12-78) U/L Alkaline Phosphatase (45-117) U/L Troponin I (0-0.045) ng/ml Total Protein (6.4-8.2) gm/dl Albumin (3.4-5.0) gm/dl Globulin (2.5-4.0) gm/dl Albumin/Globulin Ratio (0.9-2) TSH (0.300-4.500) uIu/ml Blood Type Antibody Screen Medications Administered Current Inpatient Medications Amlodipine Besylate (Norvasc) 2.5 mg PO [facility] Stop: 01/16/20 08:59 Docusate Sodium (Colace) 100 mg PO [facility] Stop: 01/16/20 08:59 Promethazine HCl 12.5 mg/ (Sodium Chloride) 50.5 mls @ 202 mls/hr IV Q6H PRN PRN Reason: Nausea And Vomiting Stop: 01/16/20 01:18 Lactobacillus Acidophilus (Floranex) 4 tab PO [facility] Stop: 01/16/20 08:59 Metoprolol Tartrate (Lopressor) 50 mg [facility] Stop: 01/16/20 04:59 Last Admin: 12/17/19 05:04 Dose: 50 mg Documented by: Morphine Sulfate (Morphine Sulfate) 2 mg IV Q4H PRN PRN Reason: Pain Stop: 12/31/19 01:28 [facility]it[facility] ([facility]itamin Tab) [facility] [place]: 01/16/20 08:59 Pantoprazole Sodium (Protonix) 40 mg PO [facility] Stop: 01/16/20 08:59 Polyethylene Glycol (Miralax Powder Packet) 17 gm PO DAILY PRN PRN Reason: Constipation Stop: 01/16/20 04:37 Senna/Docusate Sodium (Senokot S) 1 tab PO QAM [facility]ICARDO Stop: 01/16/20 08:59 Tramadol HCl (Ultram) 50 mg PO Q4H PRN PRN Reason: pain Stop: 01/16/20 01:18 (1) Hematoma of left flank Encounter type: initial encounter Qualified Code(s): S30.1XXA - Contusion of abdominal wall, initial encounter
[2019-12-17] MEDS: LACTOBACILLUS ACIDOPHILUS (FLORANEX) TAB PO SCH (07:39)
[2019-12-17] MEDS: MULTIVITAMIN TAB PO SCH (07:39)
[2019-12-17] MEDS: AMLODIPINE BESYLATE 5 MG TAB PO SCH (07:39)
[2019-12-17] MEDS: DOCUSATE SODIUM 100 MG CAP PO SCH (07:39)
[2019-12-17] MEDS: PANTOprazole 40 MG TAB PO SCH (07:39)
[2019-12-17] MEDS: DOCUSATE SODIUM/SENNA 50/8.6MG TAB PO SCH (07:42)
[2019-12-17] MEDS ORDERED: METOPROLOL TARTRATE 50 MG TAB PO SCH (09:00)
[2019-12-17 10:08] LABS: Hematocrit (blood only) 32.6 % (42-52); Hemoglobin 10.6 g/dL (14.0-18.0)
[2019-12-17 15:06] LABS: Hematocrit (blood only) 32.7 % (42-52); Hemoglobin 10.9 g/dL (14.0-18.0)
--- NOTE | 2019-12-17 15:57 | Electrocardiogram Report ---
Test Reason : Blood Pressure : / mmHG Vent. Rate : 095 BPM Atrial Rate : 375 BPM P-R Int : 000 ms QRS Dur : 102 ms QT Int : 342 ms P-R-T Axes : 000 -64 077 degrees QTc Int : 429 ms Atrial fibrillation Left axis deviation Septal infarct , age undetermined Abnormal ECG When compared with ECG of 24-SEP-2019 14:50, Nonspecific T wave abnormality now evident in Lateral leads Confirmed by Hakeem Damon ([id number]) on 12/17/2019 3:57:01 PM Referred By: REFERRED SELF Confirmed By:Hakeem Damon
[2019-12-17] MEDS ORDERED: SODIUM CHLORIDE 0.9% 1000ML 500 ML IV ONE (16:26)
[2019-12-17] MEDS ORDERED: METOPROLOL TARTRATE 1 MG/ML VIAL IV STA (16:27)
[2019-12-17] MEDS ORDERED: METOPROLOL TARTRATE 1 MG/ML VIAL IV PRN (17:41)
[2019-12-18] MEDS: METOPROLOL TARTRATE 25 MG TAB PO SCH ×2 (05:46→21:38)
[2019-12-18] MEDS: LACTOBACILLUS ACIDOPHILUS (FLORANEX) TAB PO SCH (07:56)
[2019-12-18] MEDS: DOCUSATE SODIUM 100 MG CAP PO SCH (07:57)
[2019-12-18] MEDS: AMLODIPINE BESYLATE 5 MG TAB PO SCH (07:57)
[2019-12-18] MEDS: DOCUSATE SODIUM/SENNA 50/8.6MG TAB PO SCH (07:58)
[2019-12-18] MEDS: MULTIVITAMIN TAB PO SCH (07:58)
[2019-12-18] MEDS: PANTOprazole 40 MG TAB PO SCH (07:58)
[2019-12-18 08:09] LABS: Hematocrit (blood only) 33.3 % (42-52); Hemoglobin 11.2 g/dL (14.0-18.0); Mean Corpuscular Volume 98.2 fL (80-100); Mean Platelet Volume 8.9 fL (7.4-10.4); Platelet Count 447 K/uL (130-400); RDW Coefficient of Variation 15.5 % (11.5-14.5); RDW Standard Deviation 55.3 fL (36.4-46.3); Red Blood Count 3.39 M/uL (4.7-6.1); White Blood Count 7.19 K/uL (4.8-10.8)
[2019-12-18 08:39] LABS: Mean Corpuscular Hgb Conc 33.6 g/dL (32-36)
[2019-12-18 08:43] LABS: BUN Creatinine Ratio 16.2 (10-20); Calcium 9.3 mg/dl (8.5-10.1); Creatinine Clr Calc Pharmacy 48.3 ml/min; Est GFR (African American) 76.1; Est GFR (Non-African American) 65.6; Potassium 4.4 mmol/L (3.5-5.1)
--- NOTE | 2019-12-18 09:53 | Hospitalist Progress Note ---
Date of Service December 18, 2019 Assessment & Plan (1) Hematoma of left flank: Secondary to supratherapeutic INR and recurrent falls AF on Coumadin, rate controlled Recurrent falls, ambulatory dysfunction INR reversed from 4.5 on admission with Kcentra and Vit K to 1.1 Hemoglobin dropped from 14 on 09/25/2021 10.9 on admission. Hemoglobin today is 11.2 Coumadin still on hold Discussed with patient about anticoagulation and need to hold. He wants me to discuss this with his daughter. (2) Recurrent falls PT/OT recommend SNF/rehab Plan to discharge to 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 Minced and moist diet recommended DVT prophylaxis SCDs RE hematoma Full code Admission and Anticipated Discharge Date Admission Date: December 16, 2019 Subjective Patient seen and examined. Complains of left lower flank pain Reports mild pain on right elbow region. Review of Systems Constitutional: no fever and no chills Eyes: no problem reported Ear, Nose, Mouth, Throat: no epistaxis Respiratory: no cough, no dyspnea and no hemoptysis Cardiovascular: no chest pain, no dyspnea and no edema Gastrointestinal: no problem reported Musculoskeletal: Left flank pain Neurologic: + unsteadiness and + generalized weakness Physical Exam Constitutional: + well hydrated; no acute distress Eyes: PERRL, conjunctivae normal, anicteric sclerae ENMT: external ear and nose normal, oropharynx normal Skin excoriation/breakdown (radiation dermatitis on right side of neck and undersurface of jaw) Respiratory: normal respiratory effort, lungs clear to auscultation Cardiovascular: Irregularly irregular S1 S2 Gastrointestinal (Abdomen): normal bowel sounds, soft, nontender, no hepatosplenomegaly Skin: Large tender Ecchymoses on left lower flank some petechiae on right elbow area Neurologic: PERRL, some hearing deficits and facial asymmetry (reported to be chronic) Psychiatric: A+Ox3, euthymic affect Results & Data Results & Data ([facility]) Vital Signs (Past 12 Hours) Vital Signs Temp Pulse Pulse Resp BP BP BP 12/18/19 06:23 36.8 C 73 19 138/78 12/18/19 02:40 36.8 C 91 H 20 161/88 H 12/18/19 00:00 162 H 150/94 H 12/17/19 23:50 117 H 12/17/19 22:58 36.9 C 104 H 18 150/96 H Pulse Ox 12/18/19 06:23 93 12/18/19 02:40 95 12/18/19 00:00 12/17/19 23:50 12/17/19 22:58 97 Laboratory Results Short CBC 12/17/19 12/17/19 12/18/19 Range/Units 09:43 14:44 08:01 WBC 7.19 (4.8-10.8) K/uL Hgb 10.6 L 10.9 L 11.2 L (14.0-18.0) g/dL Hct 32.6 L 32.7 L 33.3 L (42-52) % Plt Count 447 H (130-400) K/uL BMP 12/18/19 08:01 Sodium 137 Potassium 4.4 Chloride 102 Carbon Dioxide 30 BUN 17 Creatinine 1.04 Glucose 158 H Calcium 9.3 (1) Hematoma of left flank Encounter type: initial encounter Qualified Code(s): S30.1XXA - Contusion of abdominal wall, initial encounter
[2019-12-18] MEDS: ENALAPRIL MALEATE 10 MG TAB PO SCH (14:34)
[2019-12-18 18:51] LABS: INR 1.1 (0.9-1.1); Prothrombin Time 11.9 Seconds (9.0-12.0)
[2019-12-19 06:59] LABS: Hemoglobin 10.1 g/dL (14.0-18.0); Mean Corpuscular Hemoglobin 32.9 pg (25-34); Mean Corpuscular Hgb Conc 33.7 g/dL (32-36); Mean Corpuscular Volume 97.7 fL (80-100); Mean Platelet Volume 8.8 fL (7.4-10.4); Platelet Count 408 K/uL (130-400); RDW Coefficient of Variation 15.3 % (11.5-14.5); RDW Standard Deviation 53.6 fL (36.4-46.3); Red Blood Count 3.07 M/uL (4.7-6.1); White Blood Count 7.33 K/uL (4.8-10.8)
[2019-12-19 07:40] LABS: BUN Creatinine Ratio 15.8 (10-20); Calcium 8.8 mg/dl (8.5-10.1); Creatinine Clr Calc Pharmacy 48.7 ml/min; Est GFR (African American) 77.9; Est GFR (Non-African American) 67.2; Potassium 3.6 mmol/L (3.5-5.1)
[2019-12-19] MEDS: AMLODIPINE BESYLATE 5 MG TAB PO SCH (08:02)
[2019-12-19] MEDS: METOPROLOL TARTRATE 25 MG TAB PO SCH (08:02)
[2019-12-19] MEDS: MULTIVITAMIN TAB PO SCH (08:03)
[2019-12-19] MEDS: LACTOBACILLUS ACIDOPHILUS (FLORANEX) TAB PO SCH (08:03)
[2019-12-19] MEDS: DOCUSATE SODIUM 100 MG CAP PO SCH (08:03)
[2019-12-19] MEDS: ENALAPRIL MALEATE 10 MG TAB PO SCH (08:04)
[2019-12-19] MEDS: DOCUSATE SODIUM/SENNA 50/8.6MG TAB PO SCH (08:04)
[2019-12-19] MEDS: PANTOprazole 40 MG TAB PO SCH (08:04)
--- NOTE | 2019-12-19 09:41 | Discharge Summary ---
Date of Service December 19, 2019 Admission HPI Per Admitting Provider History obtained from patient and records. Medical history significant for A. fib on Coumadin, pulmonary hypertension as per records, hypertension, tongue cancer status post surgery, chemoradiation with recurrent neck disease status post chemoradiation. prediabetes as per records. Patient developed new onset A. fib. during confinement at [facility] for neck dissection/glossectomy 2018. Seen by [facility] flying i instructor on consultation. Patient discharged on Coumadin. Has not seen a flying i instructor outpatient for follow-up. The last few days patient noted increasing weakness and recurrent falls with some head trauma. No chest pain, no S OB, no LOC. Chronic junky cough symptoms. No black/bloody stools. Subsequently noted achy flank pain. Headache symptoms from bump in the head. Patient brought to the ER for evaluation. Vitamin K and Kcentra administered at the ER for coagulopathy, INR of 4.5. 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 Admission Exam Per Admitting Provider GENERAL: Comfortable, pleasant, slightly hard of hearing, no respiratory distress SKIN: Pallor , warm HEENT: Contusion left forehead, pale palpebral conjunctivae, no ptosis, chronic facial asymmetry, dry buccal mucosa NECK : Healed incisional scar, some limitation in motion , no tenderness CHEST : Decreased breath sounds , no tenderness HEART : irregular, no obvious murmurs ABDOMEN: Soft, nontender BACK : Ecchymoses both flanks left greater than the right EXTREMITIES : Minimal LE swelling, no LE tenderness, no other conspicuous deformities noted NEUROLOGIC : Coherent, chronic facial asymmetry, slightly hard of hearing, mild dysarthria (chronic ), gait and stance not assessed Principal Diagnosis Left flank hematoma Warfarin coagulopathy Frequent Falls Discharge Exam Constitutional + well hydrated; no acute distress Eyes PERRL, conjunctivae normal, anicteric sclerae ENMT external ear and nose normal, oropharynx normal Respiratory normal respiratory effort, lungs clear to auscultation Cardiovascular Rate/Rhythm: + irregularly irregular Extremities: no pedal edema S1 S2 Gastrointestinal (Abdomen) normal bowel sounds, soft, nontender, no hepatosplenomegaly Skin Ecchymosis over left lower flank Neurologic PERRL, some hearing deficits and facial asymmetry (reported to be chronic) Psychiatric A+Ox3, euthymic affect Discharge Data Allergies Allergy/AdvReac Type Severity Reaction Status Date / Time oxycodone Allergy Severe Hallucinati Verified 12/16/19 21:36 ng peanut Allergy Severe Anaphylaxis Verified 12/16/19 21:36 Consultations 12/16/19 23:15 ED Decision to Admit Stat 12/17/19 01:19 Consult Case Management - Discharge Planning Routine Ordered Studies 12/16/19 21:30 CT abd pelvis IV con only Stat FINDINGS: Minimal dependent basilar atelectasis. The liver spleen and pancreas are grossly unremarkable. Kidneys show moderate cortical scarring bilaterally. Prior cholecystectomy. Nonobstructive bowel pattern. No free fluid within the abdomen or pelvic region. Bladder is midline. Mild rectal fecal impaction. Subcutaneous hematoma overlying the left flank lateral to the left iliac wing measuring approximately 12 x 10 x 8 cm. Severe degenerative change of the lumbar spine with no evidence for compression fracture. All remaining bony structures show degenerative changes throughout. IMPRESSION: 1. Large hematoma subcutaneous tissues left flank lateral to left iliac wing. 2. This measures 12 x 10 x 8 cm 3. 2 small foci of increased density within the hematoma which potentially indicate a small amount of residual bleeding. 4. Moderate rectal fecal impaction. 5. Otherwise no additional acute process of the abdomen or pelvis. CT cervical spine wo con Stat FINDINGS: No fractures. No subluxation. Prevertebral soft tissues and the C1-C2 interval are intact. No pneumothorax. Considerable degenerative disc changes throughout. Considerable degenerative change vertebral endplates. No evidence for compression deformity. IMPRESSION: Considerable degenerative change. No acute process. CT chest w con Stat FINDINGS: Severe degenerative change of the shoulders bilaterally. Probable bilateral degenerative joint effusions. Lungs are considered clear. Mild esophageal distention possibly on the basis of reflux. No significant hilar or mediastinal adenopathy. Mild dependent bibasilar atelectatic change. Significant degenerative change of the low thoracic region. No evidence for a compression deformity. IMPRESSION: 1. No acute process of the chest. 2. Significant degenerative change of the low thoracic spine with no evidence f or compression deformity. 3. Severe degenerative change of the shoulders bilaterally with evidence for moderate degenerative joint effusions bilaterally. 4. Mild esophageal distention with moderate contained debris suggesting probable reflux. CT head/brain wo con Stat Findings: The paranasal sinuses and mastoid air cells are clear. The calvarium and skull base are intact. The ventricles and sulci are within normal limits. There is no mass, hematoma, midline shift, or acute infarct. Considerable atrophy and small vessel change. No acute intracranial hemorrhage. Impression: No acute intracranial abnormality. Considerable atrophy and chronic small vessel change. Hospital Course (1) Hematoma of left flank: Secondary to supratherapeutic INR and recurrent falls AF on Coumadin, rate controlled Recurrent falls, ambulatory dysfunction INR reversed from 4.5 on admission with Kcentra and Vit K to 1.1 Hemoglobin dropped from 14 on 09/25/19 to 10.9 on admission. Hemoglobin today is 10.1 Coumadin discontinued Spoke with patient as well as her Daughter Halina yesterday about coagulopathy, bleeding and increased risk of bleeding on blood thinners considering his ambulatory dysfunction, falls I explained management plan and the risks of continuing warfarin at this time Daughter stated she will like all antiplatelets and anticoagulation be discontinued for now. They will follow up with patient's oncologist in the future to determine if it should ever be resumed. 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 Minced and moist diet recommended Total Time Total Time Spent Total Time Spent (In Minutes): 35 Total Time Includes: Examination of the Patient, Discharge Planning and Medication Reconciliation Discharge Plan Discharge Items Patient Disposition: Transfer Intermediate Fac Reason For Visit: Falls Discharge Diagnosis: Left flank hematoma Warfarin coagulopathy Frequent Falls Activity: As commented below Activity Comment: Per Physical therapist recommendations Non-emergency contact: Primary Care Provider and Oncologist Call non-emergency contact if: you have any medication questions and your symptoms worsen Follow-up/Referrals: Yogi Bonilla MD [Primary Care Provider] - Diet: Heart Healthy Liquid Consistency: [place] thick Diet Comment: Diet texture - Minced and moist Addtl Attending Provider Instructions: Mr Collado. You came to the hospital complaining of increased weakness and recurrent falls with head trauma. You were evaluated and found to have bleeding into your side [left flank hematoma] Your aspirin and warfarin were suspended. After discussions with you and your daughter, antiplatelets and coagulation [blood thinners] were stopped for now. Please continue to follow up with your Oncologist and Lime Puller. You are being discharged to alf facility for rehab.f It was a pleasure taking care of you. Pending Studies at Discharge: No Stand-Alone Forms: [facility] Skilled Items Patient informed of condition?: Yes DNR: No Discharge Level of Care: Skilled Communicable Disease: No Discharge Prognosis: Stable Lines: None Urinary Catheter: No Medications and DC Order Prescriptions: Continued silver sulfadiazine [Silvadene] 1 % cream 1 applic TOP BID Qty: 85 RF: 3 multivitamin Tablet 1 tab PO QAM RF: 0 enalapril maleate 20 mg tablet 20 mg PO QAM RF: 0 docusate sodium [Stool Softener] 100 mg Capsule 100 mg PO QAM RF: 0 omeprazole 20 mg Capsule,Delayed Release(Dr/Ec) 20 mg PO QAM RF: 0 glucosamine-chondroitin 250-200 mg Tablet 1 tab PO QAM RF: 0 Probiotic 3 billion cell Capsule 3,000 mmu cells PO QAM RF: 0 amlodipine 2.5 mg tablet 2.5 mg PO QAM RF: 0 acetaminophen [Tylenol Extra Strength] 500 mg Tablet 500 mg PO Q6H PRN (Reason: Pain) RF: 0 Mbxc 2 tsp PO ACHS PRN (Reason: unk) RF: 0 Changed tramadol 50 mg tablet 50 mg PO Q8H PRN (Reason: pain) Qty: 9 RF: 0 metoprolol tartrate 50 mg tablet 75 mg PO BID Qty: 0 RF: 0 Discontinued acetaminophen-codeine [Tylenol-Codeine #3] 300-30 mg tablet 1 tab PO Q6H PRN (Reason: pain) Qty: 30 RF: 1 warfarin 2.5 mg tablet 2.5 mg PO UD RF: 0 aspirin [Aspirin Low Dose] 81 mg Tablet,Delayed Release (Dr/Ec) 81 mg PO QAM RF: 0 Discharge Orders: Discharge Order (Routine); Ordered 04/16/20 Ordered By: Suly San/Other Patient Handouts: Hyperglycemia, Hypoglycemia, Diabetes Type 2 Managing, Diabetes Meal Planning Admission Data Admit Date/Time: 12/16/19 23:36 Attending Provider: Suly Oreilly I. Admit Provider: Jacob Masterson Primary Care Provider: Yogi Bonilla Other Providers: Jacob Masterson ; Be Huang ; Lane Landeros Other Interventions: Discharge Summary Assessment (RN) Last Done: 12/19/19 10:34 DC Date/Time DO NOT enter until pt leaves facility: 12/19/19 15:56
[2019-12-19 10:58] VITALS: BP 142/81; PULSE 84; TEMP 97.9; O2SAT 92
== END 2019-12-19 15:56 | DRG 813 ==
LOC: ED 21:12 → 2N 23:36 → SUATTDRO 23:36 → 2N 12-17 00:20

== ENCOUNTER 2022-10-10 20:50 | Inpatient (IN) ==
--- NOTE | 2022-10-10 21:12 | Emergency Department Note ---
Impression & Plan Fall, A-fib, Current use of rodent exterminator anticoagulation, Traumatic hematoma of abdominal wall ED Provider Note Provider: Ramez Montoya MD DATE OF SERVICE: 10/10/2022 CHIEF COMPLAINT: Left inguinal and lower abdominal pain after fall HISTORY OF PRESENT ILLNESS: Patient is a 87-year-old gentleman with a history of A-fib on warfarin presenting here today after sliding out of his bed 3 days ago and hurting his left inguinal and lower abdomen region. Patient states he slid the ground but did not strike his head. Denies significant pain beyond the left inguinal and lower abdominal area. Has been able to walk gingerly. Patient as well as patient's son who later arrives reports that the patient has chronic issues with his right leg and ankle that has been ongoing for decades. Patient denies new significant trauma here. Does wear a brace. Denies significant nausea or vomiting. Patient denies other headache, neck pain, chest pain, or shortness of breath. Has been using tramadol he has for aches and pains at home with some improvement of his pain. No urinary symptoms reported. PAST MEDICAL HISTORY: As noted above MEDICATIONS: Reviewed home medications includes warfarin and tramadol SOCIAL HISTORY: Lives at home with PHYSICAL EXAM: GENERAL: alert and oriented in no acute distress on stretcher, but hard of hearing Head: normocephalic and atraumatic EYES: No injection, discharge or icterus. NECK: Trachea midline. Supple without cervical midline tenderness ENT: Mucous membranes pink and moist. LUNGS: Airway patent. No retractions. Breath sounds clear with good air entry bilaterally. HEART: Regular rate and rhythm. No chest wall tenderness on palpation including the left chest ABDOMEN: Soft with some left lower quadrant tenderness but no significant con tusions noted. No large inguinal hernia or bulge appreciated. SKIN: Acyanotic, warm, dry, without rashes EXTREMITIES: Without swelling, tenderness or deformity range the left hip without significant pain. There is some chronic deformity reported by the patient and family in the right ankle with medially displaced right foot. NEUROLOGICAL: No focal deficits. No aphasia. No facial droop or slurred speech. Normal strength and tone in the extremities. Sensation to gross touch normal. CONTINUOUS CARDIAC MONITORING: was ordered and showed a heart rate of 70s bpm in atrial fibrillation Patient's laboratory studies and imaging reviewed. 3 view right ankle x-ray per my interpretation: Chronic deformities do not see clear acute fracture there are some vascular calcification centered around the r ight ankle with medial dislocation. Differential includes IMPRESSION/MEDICAL DECISION MAKING: Patient with significant history including A-fib on warfarin. Evidently slid to the floor but unable to get the exact details. Does say he did not strike his head. Denies head or neck pain. Denies chest pain. Reports pain to left lower abdomen to the left inguinal region. Chronic issues reported by patient and son to the right ankle but did obtain an x-ray here given its deformity. Again family and patient report this is chronic and appears chronic on the x-ray. Given this will not try to reduce as this has been present for years and is not causing him new active issues. Does appear to be chronic on physical exam. Basic labs obtained. Has been treating his pain with tramadol at home with some improvement. Basic labs with stable renal function. No signs of severe electrolyte abnormality. No signs of pancreatitis or hepatitis based on labs. No leukocytosis. Hemoglobin of 13.5. CT abdomen pelvis concerning for a left abdominal wall rectus sheath hematoma. Reports questions some active extravasation. Is anticoagulated for A-fib. Discussed with patient and family at bedside and believe reversal with IV vitamin K is reasonable at this time as he is not hypotensive or with significant anemia; if decline could consider Kcentra. Will bring into the hospital for pain control and monitoring of his hemoglobin. Family and patient in agreement. Discussed with the hospitalist team. Patient denies significant pain at this point. DIAGNOSIS: Fall, left abdominal wall hematoma, long-term ambulation secondary to A-fib DISPOSITION: Hospitalist will evaluate Patient was agreeable with this plan. Critical Care I have personally spent 31 minutes of critical care time in the direct management of this patient. This includes bedside care, interpretation of diagnostic studies, and testing, discussion with consultants, patient, and family members, and other required patient management activities. These 31 minutes is in excess of all separately billable procedures. Preliminary Findings Only See Final Report For Complete Findings CT ABDOMEN & PELVIS With Contrast: Left abdominal rectus sheath hematoma measuring 4.8 x 6.2 x 12.2 cm there are tiny areas of acute hyperdensity seen within suggesting active contrast extravasation and hemorrhage Postoperative changes prior cholecystectomy Normal-appearing appendix. Radiologist: Saleem Peoples MD Past Med/Surg History Medical History (Updated 10/10/22 @ 22:07 by Ramez Montoya M.D.) A-fib Acquired ankle deformity Astigmatism Carpal tunnel syndrome left DDD (degenerative disc disease) Diverticulosis Frozen shoulder Ganglion left wrist / surgery GERD (gastroesophageal reflux disease) History of tongue cancer [place] (hard of hearing) HTN (hypertension) Impaired glucose tolerance Impotence Internal hemorrhoids Intestinal disaccharidase deficiency Kidney disease, chronic, stage III (GFR 30-59 ml/min) Mild pulmonary hypertension Osteoarthritis Overweight Presbyopia Sensorineural hearing loss Squamous cell carcinoma Surgical History H/O carpal tunnel repair bilateral surgery H/O glossectomy surgery 10/2018 History of radical dissection of left side of neck surgery 10/2018 History of repair of inguinal hernia History of shoulder surgery surgery many years ago / it healed improperly S/P cholecystectomy S/P tonsillectomy and adenoidectomy Family History Mother , age 77 Breast cancer metastatic to bone Father , age 83 Myocardial infarction Brother No problems noted. Daughter No problems noted. Son No problems noted. Son No problems noted. 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 Feels Safe at Home: Yes Assistive Devices: Walker Allergies Allergies Allergy/AdvReac Type Severity Reaction Status Date / Time oxycodone Allergy Severe Hallucinati Verified 12/16/19 21:36 ng peanut Allergy Severe Anaphylaxis Verified 12/16/19 21:36 Home Meds Home Medications Medication Instructions Recorded Confirmed glucosamine-chondroitin 250 mg-200 1 tab PO QAM 10/19/18 03/10/20 mg tablet lactobacillus combination no.4 3 3,000 mmu cells PO QAM 10/19/18 03/10/20 billion cell capsule (Probiotic) multivitamin 1 tab PO QAM 10/19/18 03/10/20 omeprazole 20 mg capsule,delayed 20 mg PO QAM 10/19/18 03/10/20 release acetaminophen 500 mg tablet 500 mg PO Q6H PRN Pain 09/24/19 03/10/20 (Tylenol Extra Strength) enalapril maleate 10 mg tablet 10 mg PO DAILY 03/10/20 03/10/20 tramadol 50 mg tablet 50 mg PO Q6H PRN pain 03/10/20 Previous Rx's Medication Instructions Recorded metoprolol tartrate 50 mg tablet 75 mg PO BID #0 tabs 12/19/19 etodolac 200 mg capsule 200 mg PO Q12H PRN pain #10 caps 03/16/22 Results & Data (ED) Vital Signs Vital Signs - 24 hr 10/10/22 20:54 10/10/22 21:00 Temperature 37.2 C Temperature Source Oral Pulse Rate 66 Pulse Rate [Apical] 76 Respiratory Rate 19 22 Respiratory Effort / Characteristics Non-Labored Spontaneous Non-Labored Spontaneous Respiratory Depth Normal Normal Respiratory Pattern Regular Regular Blood Pressure 195/78 H Blood Pressure [Right Arm] 195/78 H Blood Pressure Mean 117 Blood Pressure Mean [Right Arm] 117 Pulse Oximetry 98 96 Oxygen Delivery Method Room Air Room Air Sepsis Recent Fever Within 48 Hours No Sepsis New/Unexplained Change in Mental Status No Sepsis Action Taken by Nursing No Action Required Laboratory Data 10/10/22 21:01 10/10/22 21:01 Lab Results 10/10/22 10/10/22 10/10/22 Range/Units 21:01 21:01 21:18 WBC 9.80 (4.8-10.8) K/ul RBC 4.35 L (4.70-6.10) M/uL Hgb 13.5 L (14.0-18.0) g/dl POC Hgb 15.0 (14.0-18.0) g/dl Hct 40.3 L (42.0-52.0) % POC Hct 44 (42-52) % MCV 92.6 (80.0-100.0) fL MCH 31.0 (25.0-34.0) pg MCHC 33.5 (32.0-36.0) g/dL RDW Std Deviation 52.3 H (36.4-46.3) fL RDW Coeff of Matthias 15.3 H (11.5-14.5) % Plt Count 271 (130-400) K/uL MPV 10.4 (9.4-12.4) fL Immature Gran % (Auto) 0.3 % Neut % (Auto) 87.0 % Lymph % (Auto) 6.1 % Cobb % (Auto) 5.6 % Eos % (Auto) 0.7 % Baso % (Auto) 0.3 % Neut # (Auto) 8.52 H (1.40-6.50) K/uL Lymph # (Auto) 0.60 L (1.2-3.4) K/uL Cobb # (Auto) 0.55 (0.11-0.59) K/uL Eos # (Auto) 0.07 (0-0.50) K/uL Baso # (Auto) 0.03 (0-0.2) K/uL Immature Gran # (Auto) 0.03 (0.01-0.20) K/uL PT (9.0-12.0) Seconds INR (0.9-1.1) POC Sodium 137 (135-144) mmol/L Sodium 136 (136-145) mmol/L POC Potassium 4.7 (3.3-5.0) mmol/L Potassium 4.1 (3.5-5.1) mmol/L POC Chloride 96 L (101-112) mmol/L Chloride 98 (98-107) mmol/L Carbon Dioxide 31 (21-32) mmol/L POC Total CO2 35 H (24-31) mmol/L Anion Gap 7 (3-11) POC Anion Gap 11.0 L (16-25) mmol/L POC BUN 35 H (7-18) mg/dl BUN 26 H (6-23) mg/dl Creatinine 0.81 (0.6-1.4) mg/dl POC Creatinine 0.7 (0.6-1.3) mg/dl Est Cr Clr Drug Dosing Not Reportable Est GFR ( Amer) 92.6 ml/min Est GFR (Non-Af Amer) 79.9 ml/min BUN/Creatinine Ratio 32.1 H (10-20) Glucose 221 H (70-99(Fasting)) mg/dl POC Glucose (other) 227 H (70-99) mg/dl Calcium 9.6 (8.5-10.1) mg/dl POC Ioniz Calcium Yu 1.17 (1.12-1.32) mmol/l Total Bilirubin 0.7 (0.2-1.0) mg/dl AST 37 (13-39) U/L ALT 33 (7-52) U/L Alkaline Phosphatase 91 (34-104) U/L Total Protein 8.1 (6.0-8.3) gm/dl Albumin 3.8 (3.4-5.0) gm/dl Globulin 4.3 H (2.5-4.0) gm/dl Albumin/Globulin Ratio 0.9 (0.9-2) Lipase 28 (11-82) U/L 10/10/22 Range/Units 21:34 WBC (4.8-10.8) K/ul RBC (4.70-6.10) M/uL Hgb (14.0-18.0) g/dl POC Hgb (14.0-18.0) g/dl Hct (42.0-52.0) % POC Hct (42-52) % MCV (80.0-100.0) fL MCH (25.0-34.0) pg MCHC (32.0-36.0) g/dL RDW Std Deviation (36.4-46.3) fL RDW Coeff of Matthias (11.5-14.5) % Plt Count (130-400) K/uL MPV (9.4-12.4) fL Immature Gran % (Auto) % Neut % (Auto) % Lymph % (Auto) % Cobb % (Auto) % Eos % (Auto) % Baso % (Auto) % Neut # (Auto) (1.40-6.50) K/uL Lymph # (Auto) (1.2-3.4) K/uL Cobb # (Auto) (0.11-0.59) K/uL Eos # (Auto) (0-0.50) K/uL Baso # (Auto) (0-0.2) K/uL Immature Gran # (Auto) (0.01-0.20) K/uL PT 25.0 H (9.0-12.0) Seconds INR 2.5 H (0.9-1.1) POC Sodium (135-144) mmol/L Sodium (136-145) mmol/L POC Potassium (3.3-5.0) mmol/L Potassium (3.5-5.1) mmol/L POC Chloride (101-112) mmol/L Chloride (98-107) mmol/L Carbon Dioxide (21-32) mmol/L POC Total CO2 (24-31) mmol/L Anion Gap (3-11) POC Anion Gap (16-25) mmol/L POC BUN (7-18) mg/dl BUN (6-23) mg/dl Creatinine (0.6-1.4) mg/dl POC Creatinine (0.6-1.3) mg/dl Est Cr Clr Drug Dosing Est GFR ( Amer) ml/min Est GFR (Non-Af Amer) ml/min BUN/Creatinine Ratio (10-20) Glucose (70-99(Fasting)) mg/dl POC Glucose (other) (70-99) mg/dl Calcium (8.5-10.1) mg/dl POC Ioniz Calcium Yu (1.12-1.32) mmol/l Total Bilirubin (0.2-1.0) mg/dl AST (13-39) U/L ALT (7-52) U/L Alkaline Phosphatase (34-104) U/L Total Protein (6.0-8.3) gm/dl Albumin (3.4-5.0) gm/dl Globulin (2.5-4.0) gm/dl Albumin/Globulin Ratio (0.9-2) Lipase (11-82) U/L Administered Medications Discontinued Medications Ioversol (Optiray 350 100ml) 90 ml IV ONCE ONE Stop: 10/10/22 21:43 Last Admin: 10/10/22 21:42 Dose: 90 ml Documented By: [facility] Discharge Plan Visit Data Chief Complaint: Abdominal Pain Stated Complaint: Hernia ED Provider: Ramez Montoya Discharge Problem: Fall, A-fib, Current use of rodent exterminator anticoagulation, Traumatic hematoma of abdominal wall Patient Disposition: Being Evaluated by Hospitalist Forms Stand Alone Forms: [facility] Prescriptions Prescriptions: No Action enalapril maleate 10 mg tablet 10 mg PO DAILY tramadol 50 mg tablet 50 mg PO Q6H PRN (Reason: pain) multivitamin Tablet 1 tab PO QAM omeprazole 20 mg Capsule,Delayed Release(Dr/Ec) 20 mg PO QAM glucosamine-chondroitin 250-200 mg Tablet 1 tab PO QAM Probiotic 3 billion cell Capsule 3,000 mmu cells PO QAM acetaminophen [Tylenol Extra Strength] 500 mg Tablet 500 mg PO Q6H PRN (Reason: Pain) metoprolol tartrate 50 mg tablet 75 mg PO BID Qty: 0 0RF etodolac 200 mg capsule 200 mg PO Q12H PRN (Reason: pain) Qty: 10 0RF Referrals Referrals: Yogi Bonilla MD [Primary Care Provider] - : Fall Qualifiers: Encounter type: initial encounter Qualified Code(s): W19.XXXA - Unspecified fall, initial encounter A-fib Qualifiers: Atrial fibrillation type: longstanding persistent Qualified Code(s): I48.11 - Longstanding persistent atrial fibrillation Traumatic hematoma of abdominal wall Qualifiers: Encounter type: initial encounter Qualified Code(s): S30.1XXA - Contusion of abdominal wall, initial encounter
[2022-10-10 21:31] LABS: iSTAT Creatinine 0.7 mg/dl (0.6-1.3); iSTAT Ionized Calcium 1.17 mmol/l (1.12-1.32); iSTAT Potassium 4.7 mmol/L (3.3-5.0)
[2022-10-10 21:37] LABS: Alanine Aminotransferase 33 U/L (7-52); Albumin Globulin Ratio 0.9 (0.9-2); Albumin Level 3.8 gm/dl (3.4-5.0); Alkaline Phosphatase 91 U/L (34-104); Anion Gap 7 (3-11); Aspartate Aminotransferase 37 U/L (13-39); BUN Creatinine Ratio 32.1 (10-20); Bilirubin,Total 0.7 mg/dl (0.2-1.0); Blood Urea Nitrogen 26 mg/dl (6-23); Calcium 9.6 mg/dl (8.5-10.1); Carbon Dioxide 31 mmol/L (21-32); Chloride 98 mmol/L (98-107); Est GFR (African American) 92.6 ml/min; Est GFR (Non-African American) 79.9 ml/min; Globulin 4.3 gm/dl (2.5-4.0); Glucose 221 mg/dl (70-99(Fasting)); Lipase 28 U/L (11-82); Potassium 4.1 mmol/L (3.5-5.1); Sodium 136 mmol/L (136-145); Total Protein 8.1 gm/dl (6.0-8.3)
[2022-10-10] MEDS ORDERED: OPTIRAY 350 100ml IV ONE (21:42)
[2022-10-10 21:55] LABS: Basophils # (auto) 0.03 K/uL (0-0.2); Basophils % (auto) 0.3 %; Eosinophils # (auto) 0.07 K/uL (0-0.50); Eosinophils % (auto) 0.7 %; Hematocrit (blood only) 40.3 % (42.0-52.0); Hemoglobin 13.5 g/dl (14.0-18.0); Immature Granulocytes # (auto) 0.03 K/uL (0.01-0.20); Immature Granulocytes % (auto) 0.3 %; Lymphocytes % (auto) 6.1 %; Mean Corpuscular Hgb Conc 33.5 g/dL (32.0-36.0); Mean Corpuscular Volume 92.6 fL (80.0-100.0); Mean Platelet Volume 10.4 fL (9.4-12.4); Monocytes # (auto) 0.55 K/uL (0.11-0.59); Monocytes % (auto) 5.6 %; Neutrophils # (auto) 8.52 K/uL (1.40-6.50); Platelet Count 271 K/uL (130-400); RDW Coefficient of Variation 15.3 % (11.5-14.5); RDW Standard Deviation 52.3 fL (36.4-46.3); Red Blood Count 4.35 M/uL (4.70-6.10)
[2022-10-10 22:18] LABS: INR 2.5 (0.9-1.1)
[2022-10-10] MEDS ORDERED: PHYTONADIONE 5 MG in DEXTROSE 5% 50 ML IV ONE (22:19)
[2022-10-11] MEDS ORDERED: PHYTONADIONE 5 MG in DEXTROSE 5% 50 ML IV STA (00:29)
--- NOTE | 2022-10-11 03:00 | History and Physical Report ---
DATE OF ADMISSION: 10/10/2022 CHIEF COMPLAINT: Abdominal pain. HISTORY OF PRESENT ILLNESS: This is an 87-year-old male with past medical history significant for type 2 diabetes, intestinal disaccharidase deficiency, hypomagnesemia, hypothyroidism, mild pulmonary hypertension, hypertension, paroxysmal atrial fibrillation, tongue cancer, status post surgery and chemoradiation, GERD, history of diverticulosis of colon, general osteoarthrosis, acquired ankle deformity, degenerative disc disease, sensorineural hearing loss, history of radical dissection of left side of the neck, presents with abdominal pain. The patient lives with his and daughter, fell couple of days ago from the bed. Today he was having abdominal pain, came to the ER and found to have a left abdominal rectus sheath hematoma. Hemoglobin stable at 13.5, hemodynamically stable. INR was 2.5, given IV vitamin K and resting comfortably, hemodynamically stable. Denies any headache. No blurred visions, no runny nose, no sore throat, no cough, no chest pain, no shortness of breath, no nausea. Still having some abdominal cramps. Normal bowel and bladder movements. No swelling in the legs. ALLERGIES: OXYCODONE, PEANUT. PAST MEDICAL HISTORY: As mentioned above. PAST SURGICAL HISTORY: Carpal tunnel surgery, colonoscopy, EGD with biopsy and ERCP, flexible sigmoidoscopy, partial removal of the tongue, removal of neck lymph nodes in the left side, cholecystectomy, tonsillectomy, adenoidectomy, repair of right indirect inguinal hernia, removal of the wrist ganglion on the left wrist, surgical removal of erupted tooth. MEDICATIONS: The patient is on acetaminophen 500 mg p.o. q.6 hours p.r.n., enalapril 10 mg p.o. daily, glucosamine chondroitin 1 tablet p.o. daily, activ8 Intelligence one capsule daily, levothyroxine 75 mcg p.o. daily, metoprolol tartrate 50 mg p.o. b.i.d., omeprazole 20 mg p.o. a.m., tramadol 50 mg p.o. q. 6 hours p.r.n., warfarin as directed. FAMILY HISTORY: Significant for mother has asthma, breast cancer; father has heart disorder. SOCIAL HISTORY: , lives with his . No smoking. Currently no alcohol. Currently no drug use. REVIEW OF SYSTEMS: As per HPI. Rest of the review of systems is negative. PHYSICAL EXAMINATION: GENERAL: The patient is old and frail, not in acute distress. VITAL SIGNS: Temperature 37.2, respiratory rate 16, blood pressure 174/91, pulse 63, oxygen 98% on room air. HEENT: Pupils equal, round and reactive to light. Oral mucosa somewhat dry. NECK: No JVD, no neck masses. CARDIOVASCULAR: S1 and S2 heard. Regular rate and rhythm. No murmur, no gallop. RESPIRATORY SYSTEM: Normal AP diameter. No accessory muscle use. No wheezing, no crackles. ABDOMEN: Soft, bowel sounds present. Diffuse tenderness, guarding. No distention. CENTRAL NERVOUS SYSTEM: Alert and oriented. Speech is somewhat on the low side. Insight is okay. Obeys simple commands. Moves extremities. EXTREMITIES: No edema, no erythema. LABORATORY DATA: WBC 9.8, hemoglobin 13.5, hematocrit 40.3, platelets 271. PT 25, INR 2.5. Sodium 136, potassium 4.1, chloride 98, CO2 31, BUN 26, creatinine 0.8, serum glucose 221, calcium 9.6, total bilirubin 0.7, AST 37, ALT 33, alkaline phosphatase 91, lipase 28. SARS-CoV-2 rapid test negative. IMAGING DATA: CT of abdomen and pelvis, preliminary report shows left abdominal rectus sheath hematoma measuring 4.8 x 16.2 x 12.2 cm. There are tiny areas of acute hyperdensity seen within suggesting active contrast extravasation and hemorrhage. ASSESSMENT AND PLAN: An 87-year-old male who is on Coumadin for atrial fibrillation, presents with a fall a couple of days ago at home, fell from bed and had abdominal pain and found to have a rectus sheath hematoma. 1. Abdominal pain, rectus sheath hematoma, on Coumadin. INR 2.5 fell couple of days ago. Fell from the bed. Received IV vitamin K in the ER. CAT scan preliminary report showing small areas of active contrast extravasation hemorrhage. Discussed with IR at [facility], Dr. Whelan. Recommended pelvic binder and to reverse INR. If there is any change in the patient's condition or if the hemoglobin is dropping, advised to call back for transfer. For now advised to monitor here as rectus sheath bleeding good chance of stopping with above measures.. We will follow H and H q. 6 hours. Current hemoglobin stable at 13.5, it was 14.5 about a month ago. Hemodynamically stable. Received IV vitamin K. We will monitor in the tele floor. 2. History of tongue cancer, status post surgery and chemo and radiation. Follow up with hematology/oncology. 3. History of type 2 diabetes: Currently not on any medication. Follow the HbA1c. Follow the blood sugars. Placed on insulin sliding scale. 4. Hypothyroidism: On Synthroid. 5. Hypertension: Continue metoprolol with holding parameters. 6. History of paroxysmal atrial fibrillation, holding Coumadin. Continue metoprolol. 7. Deep venous thrombosis prophylaxis: Sequential compression devices for now. DISPOSITION: Closely monitor in the tele floor. Level 1 full code as per my discussion with the patient . Job ID: [id number] [id number]
[2022-10-11] MEDS ORDERED: GLUCOSE 40% GEL 15 GM TUBE PO PRN (04:13)
[2022-10-11] MEDS ORDERED: traMADol HCL 50 MG TABLET PO PRN (04:13)
[2022-10-11] MEDS ORDERED: DEXTROSE 50% 50 ML SYRINGE IV PRN (04:13)
[2022-10-11] MEDS ORDERED: GLUCAGON FOR INJ 1 MG VIAL SQ PRN (04:13)
[2022-10-11] MEDS ORDERED: NITROGLYCERIN SL 0.4 MG/TAB TAB SL PRN (04:13)
[2022-10-11] MEDS ORDERED: GLUCOSE 10 TAB/TUBE PO PRN (04:13)
[2022-10-11] MEDS ORDERED: POLYETHYLENE (MIRALAX) 17 GM PACK PO PRN (04:13)
[2022-10-11] MEDS ORDERED: CARBOHYDRATES FOR HYPOGLYCEMIA PO PRN (04:13)
[2022-10-11] MEDS: SODIUM CHLORIDE 0.9% 1000ML 1,000 ML IV SCH ×2 (04:37→17:47)
[2022-10-11] MEDS: INSULIN ASPART PER UNIT SC SCH ×4 (04:37→23:58)
--- NOTE | 2022-10-11 05:59 | Surgery Consultation ---
Date of Consultation October 11, 2022 Assessment & Plan (1) Traumatic hematoma of abdominal wall: Patient has been admitted on the hospitalist service. Recommend proceeding as follows: Hold anticoagulation which has been done. This is also been reversed with prothrombin complex concentrate. Follow serial hemoglobin and hematocrits. Transfuse as indicated clinically Patient has an abdominal binder on which should continue. The present time there does not appear to be expanding hematoma on physical exam although the area is painful. There is concern the patient has an expanding hematoma consideration be given to repeat imaging. There remains active extravasation consideration be given to transferring the patient for interventional radiology and embolization. As noted the patient has been hemodynamically stable without the requirement of transfusion. He has not been hypotensive or tachycardic. Supervising Physician Co-Signing Physician Notes Patient seen and examined, labs and imaging reviewed, agree with above. 87-year-old male on anticoagulation status post fall with abdominal pain. CT scan revealed a rectus sheath hematoma with punctate area of extravasation. He has been hemodynamically stable and his H&H have remained stable. On exam he is afebrile with stable vitals. Tender to palpation over the palpable rectus sheath hematoma, nonpulsatile. Personally viewed the CT scan agree with the ass essment of rectus sheath hematoma with possible small area of extravasation. H&H stable. Supportive care, agree with reversal of anticoagulation and continue to hold for now. If remains hemodynamically stable then may start on a diet. If continues to bleed then would recommend IR embolization which would likely be performed at a tertiary center. Surgery will follow peripherally, call with questions or concerns. History of Present Illness Reason for Consultation: Rectus sheath hematoma Attending Physician: Troy Ryan MD History of Present Illness This is an 87-year-old male who presented to the emergency department secondary to pain in his left abdominal wall. The patient says that he was attempting to get out of bed approximately 3 days ago. He said when he felt he did not strike his head or abdomen but he said he used a walker to aid him getting up and when he did so he feels as though he stretched his abdominal wall. Since that time he has had worsening pain on his left abdominal wall. He denies any lightheaded dizziness. He says he did not hit his head. He denies any visual changes he denies any fevers, shakes, or chills. He denies any nausea or vomiting. The patient notes that he does have a history of atrial fibrillation for which he takes Coumadin. Since arrival to the hospital the patient has had labs and imaging which independent reviewed. CT scan abdomen pelvis showed a rectus sheath hematoma of the left abdominal musculature measuring 4.8 x 6.2 x 12.2 cm. There is concern patient had active extravasation. Labs included a CBC were white blood cell count and platelet count were normal. Hemoglobin and hematocrit were 13.5 and 15.0. His INR at time of admission was 2.5. Chemistry profile showed sodium and potassium are both normal. The patient's BUN was slightly elevated at 23 with a normal creatinine. A COVID test was negative. I discussed with the treating nurse in the intensive care unit patient did receive prothrombin complex concentrate to reverse his INR. She notes that the patient has been hemodynamically stable without hypotension or tachycardia since arrival to the unit. She notes that other than the prothrombin complex concentrate she has not received any blood products. At the time of my interview he was resting comfortably in bed he was in no distress. Allergies Allergy/AdvReac Type Severity Reaction Status Date / Time oxycodone Allergy Severe Hallucinati Verified 12/16/19 21:36 ng peanut Allergy Severe Anaphylaxis Verified 12/16/19 21:36 Home Medications Medication Instructions Recorded Confirmed Type omeprazole 20 mg capsule,delayed 20 mg PO QAM 10/19/18 10/10/22 History release enalapril maleate 10 mg tablet 10 mg PO DAILY 03/10/20 10/10/22 History tramadol 50 mg tablet 50 mg PO Q6H PRN pain 03/10/20 10/10/22 History Lactobacills gasseri-Bifidobac 1 cap PO DAILY 10/10/22 10/10/22 History bifidum,longum 1.5 billion cell capsule (Skwibl) acetaminophen 500 mg tablet 500 mg PO Q6H PRN Pain 10/10/22 10/10/22 History glucosamine 375 oa-avbawjtwb-fys 1 tab PO DAILY 10/10/22 10/10/22 History no1 500 mg-C 15 mg-pia 0.5 mg tablet (Irnbipwalcd-Kitzdtnuuwv-LJA Complex) levothyroxine 75 mcg tablet 75 mcg PO DAILYBB 10/10/22 10/10/22 History (Synthroid) metoprolol tartrate 50 mg tablet 50 mg PO BID 10/10/22 10/10/22 History vitamin E 268 mg (400 unit) capsule 268 mg PO AMHS 10/10/22 10/10/22 History warfarin 2.5 mg tablet See Rx Instructions .Route .COMPLEX 10/10/22 10/10/22 History Patient History Medical History (Updated 10/10/22 @ 22:07 by Ramez Montoya M.D.) A-fib Acquired ankle deformity Astigmatism Carpal tunnel syndrome left DDD (degenerative disc disease) Diverticulosis Frozen shoulder Ganglion left wrist / surgery GERD (gastroesophageal reflux disease) History of tongue cancer [place] (hard of hearing) HTN (hypertension) Impaired glucose tolerance Impotence Internal hemorrhoids Intestinal disaccharidase deficiency Kidney disease, chronic, stage III (GFR 30-59 ml/min) Mild pulmonary hypertension Osteoarthritis Overweight Presbyopia Sensorineural hearing loss Squamous cell carcinoma Surgical History H/O carpal tunnel repair bilateral surgery H/O glossectomy surgery 10/2018 History of radical dissection of left side of neck surgery 10/2018 History of repair of inguinal hernia History of shoulder surgery surgery many years ago / it healed improperly S/P cholecystectomy S/P tonsillectomy and adenoidectomy Family History Mother , age 77 Breast cancer metastatic to bone Father , age 83 Myocardial infarction Brother No problems noted. Daughter No problems noted. Son No problems noted. Son No problems noted. 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 Other Information That Helps Us Care for You: No Feels Safe at Home: Yes Safety Concerns: Feels Safe At This Time Assistive Devices: Cane and Walker Review of Systems Constitutional: no fever and no chills Eyes: no diplopia Ear, Nose, Mouth, Throat: no ear pain Respiratory: no cough and no dyspnea Cardiovascular: no chest pain Gastrointestinal: + abdominal pain (Left side of rectus muscle); no nausea and no vomiting Genitourinary: no dysuria Musculoskeletal: no back pain Integumentary: no rash Neurologic: no localized weakness Physical Exam Constitutional: WD/WN, vitals as above Eyes: no conjunctival abnormality ENMT: Ears: + hearing impairment; no external ear abnormality Mouth: no oropharynx abnormality Neck: trachea midline Respiratory: normal respiratory effort; no respiratory distress and no labored breathing Cardiovascular: Rate/Rhythm: regular rate and regular rhythm Vessels: radial pulses present Gastrointestinal (Abdomen): Abdomen is soft and nondistended. No significant ecchymosis or bruising is noted on left rectus sheath. There are no large bulges suggestive of an expanding hematoma. The area of the left rectus sheath is painful to palpation. Musculoskeletal: No calf tenderness Skin: no rashes Neurologic: moves all extremities Psychiatric: A+Ox3, euthymic affect Results & Data ([facility]) Vital Signs (Past 12 Hours) Vital Signs Temp Pulse Pulse Resp BP BP Pulse Ox 10/11/22 05:23 10/11/22 04:09 36.5 C 87 22 220/110 H 94 10/11/22 04:24 36.6 C 70 16 208/122 H 100 10/11/22 03:00 70 18 165/97 H 97 10/11/22 01:04 76 19 182/98 H 97 10/10/22 23:27 63 16 174/91 H 98 10/10/22 21:00 76 22 195/78 H 96 10/10/22 20:54 37.2 C 66 19 195/78 H 98 O2 Del Method 10/11/22 05:23 Room Air 10/11/22 04:09 Room Air 10/11/22 04:24 Room Air 10/11/22 03:00 Room Air 10/11/22 01:04 Room Air 10/10/22 23:27 Room Air 10/10/22 21:00 Room Air 10/10/22 20:54 Room Air PG Care Time/CCT Total # of Minutes Spent Total Time Spent with Patient: Total time spent is greater than 50% in coordination of care (as documented) at patient's floor/unit and/or counseling patient: Coding Level of Care Code 89909 INT INP/OBS CARE 3/75MIN Diagnoses Traumatic hematoma of abdominal wall S30.1XXA Encounter type: initial encounter (1) Traumatic hematoma of abdominal wall Encounter type: initial encounter Qualified Code(s): S30.1XXA - Contusion of abdominal wall, initial encounter
[2022-10-11] MEDS: LEVOTHYROXINE SODIUM 75 MCG TABLET PO SCH (06:05)
[2022-10-11 06:17] LABS: Basophils # (auto) 0.02 K/uL (0-0.2); Basophils % (auto) 0.2 %; Eosinophils # (auto) 0.01 K/uL (0-0.50); Eosinophils % (auto) 0.1 %; Hematocrit (blood only) 38.5 % (42.0-52.0); Hemoglobin 13.1 g/dl (14.0-18.0); Immature Granulocytes # (auto) 0.03 K/uL (0.01-0.20); Immature Granulocytes % (auto) 0.3 %; Lymphocytes # (auto) 0.64 K/uL (1.2-3.4); Lymphocytes % (auto) 6.9 %; Mean Corpuscular Volume 91.2 fL (80.0-100.0); Mean Platelet Volume 10.4 fL (9.4-12.4); Monocytes # (auto) 0.55 K/uL (0.11-0.59); Monocytes % (auto) 5.9 %; Neutrophils # (auto) 8.05 K/uL (1.40-6.50); Neutrophils % (auto) 86.6 %; Platelet Count 335 K/uL (130-400); RDW Coefficient of Variation 15.2 % (11.5-14.5); Red Blood Count 4.22 M/uL (4.70-6.10)
[2022-10-11 06:21] LABS: BUN Creatinine Ratio 27.5 (10-20); Calcium 9.7 mg/dl (8.5-10.1); Creatinine Clr Calc Pharmacy 60.8 ml/min; Est GFR (African American) 93.1 ml/min; Est GFR (Non-African American) 80.3 ml/min; Magnesium 1.9 mg/dl (1.7-2.4); Potassium 3.7 mmol/L (3.5-5.1)
[2022-10-11] MEDS ORDERED: hydrALAZINE HCL 20 MG/ML VIAL IV PRN (07:08)
[2022-10-11 07:39] LABS: INR 1.4 (0.9-1.1); Prothrombin Time 14.5 Seconds (9.0-12.0)
--- NOTE | 2022-10-11 07:44 | CT Scan Report ---
ABDOMEN AND PELVIS CT WITH IV CONTRAST CT DOSE: 590.50 mGy.cm HISTORY: Left lower quadrant pain. Fall. TECHNIQUE: Multiaxial CT images of the abdomen and pelvis were performed following the use of intrave nous contrast. A dose lowering technique was utilized adhering to the principles of ALARA. COMPARISON STUDY: Abdomen and pelvis CT 12/16/2019. 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 Moderate to severe de generative disc disease within the thoracolumbar spine. Interlobular septal thickening with patchy ai rspace opacity within the lung bases. No pneumoperitoneum. No pneumatosis. No acute fractures identif ied. There is mild motion artifact. There is an 11 x 7.6 x 5.2 cm left rectus sheath hematoma which d emonstrates active arterial extravasation. This results in mild mass effect and rightward deviation o f the bladder. There is a small amount of extraperitoneal hematoma anterior to the bladder which exte nds towards the left retroperitoneal space. Cholecystectomy. The liver, spleen, adrenal glands, and p ancreas are unremarkable. No hydronephrosis. A few subcentimeter renal hypodense lesions. These favor cysts. No bladder wall thickening. No pelvic free fluid. Colonic diverticulosis. No evidence for acu te diverticulitis. No bowel wall thickening or obstruction. Normal appendix. IMPRESSION: 1. There is an 11 x 7.6 x 5.2 cm left rectus sheath hematoma which demonstrates active arterial extra vasation. This results in mild mass effect and rightward deviation of the bladder. There is a small a mount of extraperitoneal hematoma anterior to the bladder which extends towards the left retroperiton eal space. 2. Additional findings as described above. ACT 112: Negative or not required by law. Electronically signed by: Malcolm Hanson M.D. 10/11/2022 7:42 AM
--- NOTE | 2022-10-11 07:57 | XRay Report ---
RIGHT ANKLE 3 VIEWS CLINICAL HISTORY: Right ankle deformity. FINDINGS: 3 views of the right ankle are obtained. No prior studies are available for comparison at t he time of dictation. The skeletal structures are osteopenic. No acute fracture is seen. There is adv anced degenerative change and deformity at the tibiotalar articulation with near complete loss of lilly nt space and varus angulation. There is no dislocation. There is severe associated bony sclerosis and subchondral cyst formation. There is also severe arthritic change in the hindfoot. Bony overgrowth i s present around the ankle and hindfoot. Mild soft tissue swelling is present around the ankle. There is advanced atherosclerotic calcification of the regional arteries. IMPRESSION: 1. Mild soft tissue swelling with no acute fracture identified. 2. Osteopenia with advanced arthritic change and deformity involving the ankle and hindfoot as above. Electronically signed by: Didier Dewey M.D. 10/11/2022 7:54 AM
[2022-10-11] MEDS: ADVANCED PROBIOTIC 1250 MG CAPSULE PO SCH (08:19)
[2022-10-11] MEDS: PANTOprazole 40 MG TAB PO SCH (08:20)
[2022-10-11] MEDS: METOPROLOL TARTRATE 50 MG TAB PO SCH ×2 (08:20→20:19)
[2022-10-11] MEDS: ENALAPRIL MALEATE 10 MG TAB PO SCH (08:20)
--- NOTE | 2022-10-11 10:51 | Hospitalist Progress Note ---
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 Will continue to trend H/H Q 6 hours. If concern for hematoma expansion, would repeat CT A/P stat. If by evening time, his H/H is stable, I would advance his diet (he is NPO currently) (3) Fall: Plan: Will need PT/OT evaluation once medically stable (4) A-fib: Plan: Rate controlled, continue metoprolol 50mg BID. Holding coumadin currently Plan DVT ppx SCDs for now Admission and Anticipated Discharge Date Admission Date: October 11, 2022 Subjective Patient feels well Denies abdominal pain Asking about food, "I get angry when I don't eat" He reports a history of falling at home, this most recent episode he fell out bed Physical Exam Physical Exam: Hard of hearing, no acute distress, non toxic ENMT: adentulous, normocephalic, atraumatic Respiratory: breathing comfortably on room air, no wheezing/rhonchi/rales Cardiovascular: Irregular but not rapid, no murmurs/rubs/gallops Gastrointestinal (Abdomen): soft, non tender, non distended, +abdominal binder Musculoskeletal: No edema Neurologic: awake, alert, spontaneously moving extremities, very hard of hearing Results & Data Results & Data ([facility]) Vital Signs (Past 12 Hours) Vital Signs Temp Pulse Pulse Resp BP BP Pulse Ox 10/11/22 07:00 84 10/11/22 07:00 89 24 10/11/22 07:00 154/96 H 10/11/22 06:30 109 H 24 10/11/22 06:00 90 19 10/11/22 06:00 174/88 H 10/11/22 05:30 75 20 10/11/22 05:00 84 17 10/11/22 05:00 182/125 H 10/11/22 04:43 180/103 H 10/11/22 04:43 80 21 10/11/22 04:30 73 18 02/07/23 04:00 79 27 H 10/11/22 04:00 208/122 H 10/11/22 03:58 73 10/11/22 05:23 10/11/22 04:09 36.5 C 87 22 220/110 H 94 10/11/22 04:24 36.6 C 70 16 208/122 H 100 10/11/22 03:00 70 18 165/97 H 97 10/11/22 01:04 76 19 182/98 H 97 10/10/22 23:27 63 16 174/91 H 98 O2 Del Method 10/11/22 07:00 10/11/22 07:00 10/11/22 07:00 10/11/22 06:30 10/11/22 06:00 10/11/22 06:00 10/11/22 05:30 10/11/22 05:00 10/11/22 05:00 10/11/22 04:43 10/11/22 04:43 10/11/22 04:30 10/11/22 04:00 10/11/22 04:00 10/11/22 03:58 10/11/22 05:23 Room Air 10/11/22 04:09 Room Air 10/11/22 04:24 Room Air 10/11/22 03:00 Room Air 10/11/22 01:04 Room Air 10/10/22 23:27 Room Air (1) Traumatic hematoma of abdominal wall Encounter type: initial encounter Qualified Code(s): S30.1XXA - Contusion of abdominal wall, initial encounter (2) Fall Encounter type: initial encounter Qualified Code(s): W19.XXXA - Unspecified fall, initial encounter (3) A-fib Atrial fibrillation type: longstanding persistent Qualified Code(s): I48.11 - Longstanding persistent atrial fibrillation
[2022-10-11] MEDS ORDERED: MAGNESIUM SULFATE / D5W 1 GM/100 ML BAG IV ONE (10:58)
[2022-10-11] MEDS ORDERED: POTASSIUM CHLORIDE CRTAB 20 MEQ TABCR PO STA (10:58)
[2022-10-11 11:15] LABS: Estimated Average Glucose 163 mg/dl; Hemoglobin A1C 7.3 % (4.5-5.6)
[2022-10-11 11:23] LABS: Hematocrit (blood only) 36.7 % (42.0-52.0); Hemoglobin 12.3 g/dl (14.0-18.0)
[2022-10-11 17:42] LABS: Hematocrit (blood only) 37.6 % (42.0-52.0); Hemoglobin 12.6 g/dl (14.0-18.0)
[2022-10-12 06:42] LABS: Hematocrit (blood only) 36.9 % (42.0-52.0); Hemoglobin 12.2 g/dl (14.0-18.0); Mean Corpuscular Hgb Conc 33.1 g/dL (32.0-36.0); Mean Corpuscular Volume 93.7 fL (80.0-100.0); Mean Platelet Volume 10.6 fL (9.4-12.4); Platelet Count 309 K/uL (130-400); RDW Coefficient of Variation 15.5 % (11.5-14.5); RDW Standard Deviation 53.1 fL (36.4-46.3); Red Blood Count 3.94 M/uL (4.70-6.10)
[2022-10-12] MEDS: INSULIN ASPART PER UNIT SC SCH ×5 (07:00→21:12)
[2022-10-12] MEDS: LEVOTHYROXINE SODIUM 75 MCG TABLET PO SCH (07:01)
[2022-10-12 07:09] LABS: Calcium 9.4 mg/dl (8.5-10.1); Creatinine Clr Calc Pharmacy 56.6 ml/min; Est GFR (African American) 90.4 ml/min; Potassium 3.7 mmol/L (3.5-5.1)
[2022-10-12 07:16] LABS: INR 1.1 (0.9-1.1); Prothrombin Time 11.9 Seconds (9.0-12.0)
[2022-10-12] MEDS: SODIUM CHLORIDE 0.9% 1000ML 1,000 ML IV SCH (08:30)
[2022-10-12] MEDS: METOPROLOL TARTRATE 50 MG TAB PO SCH ×2 (08:32→21:12)
[2022-10-12] MEDS: ENALAPRIL MALEATE 10 MG TAB PO SCH (08:32)
[2022-10-12] MEDS: ADVANCED PROBIOTIC 1250 MG CAPSULE PO SCH (08:32)
[2022-10-12] MEDS: PANTOprazole 40 MG TAB PO SCH (08:32)
[2022-10-12] MEDS ORDERED: Nursing to Pharmacy Communication SCH (11:45)
--- NOTE | 2022-10-12 18:02 | Hospitalist Progress Note ---
Date of Service October 12, 2022 Assessment & Plan (1) Traumatic hematoma of abdominal wall: Plan: Present on admission with abdominal pain Possible due to mechanical fall and being on coumadin CT abd/pelvis showed 11 x 7.6 x 5.2 cm left rectus sheath hematoma which demonstrates active arterial extravasation. This results in mild mass effect and rightward deviation of the bladder. There is a small amount of extraperitoneal hematoma anterior to the bladder which extends towards the left retroperitoneal space. admitting provider discussed case with IR at [place] on admission- Recommended pelvic binder and to reverse INR. Continue to hold coumadin, continue abdominal binder Surgery on board If concern for hematoma expansion, would repeat CT A/P stat. If continues to bleed then would recommend IR embolization which would likely be performed at a tertiary center. 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 Coumadin on hold Hypothyroidism TSH 2.6 Continue levothyroxine DVT ppx on SCDs due abdominal miranda hematoma CODE status Full code Admission and Anticipated Discharge Date Admission Date: October 11, 2022 Subjective Pt was seen and examined for follow up Lying in bed with no acute distress He is confused today Nurse said that he has been trying to remove his IV access Denies any chest pain, palpitation, dizziness and SOB Review of Systems Review of Systems: All systems reviewed & are unremarkable except as noted in Subjective Physical Exam Physical Exam: General- No acute distress, confused Head- atraumatic Eyes- PERRL, EOMI, ENT- oropharynx clear Neck- supple, no JVD Lungs- clear to auscultation Heart- irregular rhythm; no murmur Abdomen- normal bowel sounds, +abdominal binder Extremities- no calf tenderness Neuro- alert, awake, confused, PERRL, EOMI; no facial palsy; no dysarthria Skin- warm & dry Results & Data Results & Data ([facility]) Vital Signs (Past 12 Hours) Vital Signs Temp Pulse Resp BP Pulse Ox O2 Del Method 10/12/22 16:43 37 C 96 H 18 164/76 H 99 Room Air 10/12/22 11:30 37.1 C 94 H 18 166/96 H 96 Room Air 10/12/22 08:00 Room Air 10/12/22 07:37 36.7 C 95 H 18 160/92 H 95 Room Air (1) Traumatic hematoma of abdominal wall Encounter type: initial encounter Qualified Code(s): S30.1XXA - Contusion of abdominal wall, initial encounter (2) A-fib Atrial fibrillation type: longstanding persistent Qualified Code(s): I48.11 - Longstanding persistent atrial fibrillation (3) Fall Encounter type: initial encounter Qualified Code(s): W19.XXXA - Unspecified fall, initial encounter
[2022-10-12] MEDS ORDERED: cloNIDine HCL 0.1 MG TAB PO ONE (18:03)
[2022-10-12 20:19] LABS: INR 1.2 (0.9-1.1); Prothrombin Time 12.3 Seconds (9.0-12.0)
[2022-10-13] MEDS: LEVOTHYROXINE SODIUM 75 MCG TABLET PO SCH (06:04)
[2022-10-13 08:24] LABS: Hematocrit (blood only) 34.2 % (42.0-52.0); Hemoglobin 11.7 g/dl (14.0-18.0); Mean Corpuscular Hemoglobin 31.2 pg (25.0-34.0); Mean Corpuscular Hgb Conc 34.2 g/dL (32.0-36.0); Mean Corpuscular Volume 91.2 fL (80.0-100.0); Mean Platelet Volume 10.5 fL (9.4-12.4); Platelet Count 324 K/uL (130-400); RDW Coefficient of Variation 15.5 % (11.5-14.5); RDW Standard Deviation 50.9 fL (36.4-46.3); Red Blood Count 3.75 M/uL (4.70-6.10); White Blood Count 9.43 K/ul (4.8-10.8)
[2022-10-13] MEDS: INSULIN ASPART PER UNIT SC SCH ×4 (08:30→20:52)
[2022-10-13] MEDS: ADVANCED PROBIOTIC 1250 MG CAPSULE PO SCH (08:50)
[2022-10-13] MEDS: METOPROLOL TARTRATE 50 MG TAB PO SCH ×2 (08:50→20:53)
[2022-10-13] MEDS: ENALAPRIL MALEATE 10 MG TAB PO SCH (08:51)
[2022-10-13] MEDS: PANTOprazole 40 MG TAB PO SCH (08:51)
--- NOTE | 2022-10-13 16:25 | Hospitalist Progress Note ---
Date of Service October 13, 2022 Assessment & Plan (1) Traumatic hematoma of abdominal wall: Plan: Present on admission with abdominal pain Possible due to mechanical fall and being on coumadin CT abd/pelvis showed 11 x 7.6 x 5.2 cm left rectus sheath hematoma which demonstrates active arterial extravasation. This results in mild mass effect and rightward deviation of the bladder. There is a small amount of extraperitoneal hematoma anterior to the bladder which extends towards the left retroperitoneal space. admitting provider discussed case with IR at [place] on admission- Recommended pelvic binder and to reverse INR. Continue to hold coumadin, continue abdominal binder Hgb stable at 11.7 Surgery on board If concern for hematoma expansion, would repeat CT A/P stat. If continues to bleed then would recommend IR embolization which would likely be performed at a tertiary center. Continue monitor H/H (2) Current use of jail anticoagulation: Plan: s/p coumadin reversal on 10/10 Continue to hold coumadin, INR 1.2 today Continue monitor PT/INR (3) Fall: Plan: Continue PT/OT PT recommended inpatient placement Continue fall precaution (4) A-fib: Plan: Rate controlled with metoprolol 50mg BID. Coumadin on hold Hypothyroidism TSH 2.6 Continue levothyroxine DVT ppx on SCDs due abdominal miranda hematoma CODE status Full code Admission and Anticipated Discharge Date Admission Date: October 11, 2022 Subjective Pt was seen and examined for follow up Lying in bed with no acute distress Pt is doing better today compare to yesterday He had therapy done today and recommended inpatient rehab Denies any chest pain, palpitation, dizziness and SOB Review of Systems Review of Systems: All systems reviewed & are unremarkable except as noted in Subjective Physical Exam Physical Exam: General- No acute distress, confused Head- atraumatic Eyes- PERRL, EOMI, ENT- oropharynx clear Neck- supple, no JVD Lungs- clear to auscultation Heart- irregular rhythm; no murmur Abdomen- normal bowel sounds, +abdominal binder Extremities- no calf tenderness Neuro- alert, awake, confused, PERRL, EOMI; no facial palsy; no dysarthria Skin- warm & dry Results & Data Results & Data ([facility]) Vital Signs (Past 12 Hours) Vital Signs Temp Pulse Pulse Resp BP Pulse Ox O2 Del Method 10/13/22 16:04 36.9 C 93 H 16 136/77 97 Room Air 10/13/22 12:21 36.4 C L 61 18 150/78 H 95 Room Air 10/13/22 08:00 100 H 10/13/22 07:31 36.4 C L 90 18 155/81 H 96 Room Air (1) Traumatic hematoma of abdominal wall Encounter type: initial encounter Qualified Code(s): S30.1XXA - Contusion of abdominal wall, initial encounter (2) A-fib Atrial fibrillation type: longstanding persistent Qualified Code(s): I48.11 - Longstanding persistent atrial fibrillation (3) Fall Encounter type: initial encounter Qualified Code(s): W19.XXXA - Unspecified fall, initial encounter
[2022-10-14] MEDS: INSULIN ASPART PER UNIT SC SCH ×4 (07:35→21:28)
[2022-10-14] MEDS: LEVOTHYROXINE SODIUM 75 MCG TABLET PO SCH (07:59)
[2022-10-14] MEDS: METOPROLOL TARTRATE 50 MG TAB PO SCH ×2 (08:01→20:09)
[2022-10-14] MEDS: PANTOprazole 40 MG TAB PO SCH (08:01)
[2022-10-14] MEDS: ADVANCED PROBIOTIC 1250 MG CAPSULE PO SCH (08:01)
[2022-10-14] MEDS: ENALAPRIL MALEATE 10 MG TAB PO SCH (08:02)
[2022-10-14] MEDS ORDERED: hydrALAZINE HCL 20 MG/ML VIAL IV PRN (08:35)
[2022-10-14] MEDS: ACETAMINOPHEN 325 MG TAB PO PRN (20:08)
--- NOTE | 2022-10-14 22:37 | Hospitalist Progress Note ---
Date of Service October 14, 2022 Assessment & Plan (1) Traumatic hematoma of abdominal wall: Plan: Present on admission with abdominal pain Possible due to mechanical fall and being on coumadin CT abd/pelvis showed 11 x 7.6 x 5.2 cm left rectus sheath hematoma which demonstrates active arterial extravasation. This results in mild mass effect and rightward deviation of the bladder. There is a small amount of extraperitoneal hematoma anterior to the bladder which extends towards the left retroperitoneal space. admitting provider discussed case with IR at [place] on admission- Recommended pelvic binder and to reverse INR. Continue to hold coumadin, continue abdominal binder Hgb stable at 11.7 Surgery on board If concern for hematoma expansion, would repeat CT A/P stat. If continues to bleed then would recommend IR embolization which would likely be performed at a tertiary center. 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 Coumadin on hold Dysphagia Seems to occur with thin liquid Speech on board s/p bedside FEES done at bedside Speech recommended puree diet with nectar thick liquid Hypothyroidism TSH 2.6 Continue levothyroxine DVT ppx on SCDs due abdominal miranda hematoma CODE status Full code Disposition Waiting for placement Admission and Anticipated Discharge Date Admission Date: October 11, 2022 Subjective Pt was seen and examined for follow up Lying in bed with no acute distress He said that he feels OK He is waiting for placement Denies any chest pain, palpitation, dizziness and SOB Review of Systems Review of Systems: All systems reviewed & are unremarkable except as noted in Subjective Physical Exam Physical Exam: General- No acute distress, confused Head- atraumatic Eyes- PERRL, EOMI, ENT- oropharynx clear Neck- supple, no JVD Lungs- clear to auscultation Heart- irregular rhythm; no murmur Abdomen- normal bowel sounds, +abdominal binder Extremities- no calf tenderness Neuro- alert, awake, confused, PERRL, EOMI; no facial palsy; no dysarthria Skin- warm & dry Results & Data Results & Data ([facility]) Vital Signs (Past 12 Hours) Vital Signs Temp Pulse Pulse Pulse Resp BP BP 10/14/22 19:14 37.0 C 90 18 123/73 10/14/22 16:00 93 H 10/14/22 15:50 37.3 C 88 18 130/76 10/14/22 11:28 36.6 C 86 18 138/84 Pulse Ox O2 Del Method 10/14/22 19:14 95 Room Air 10/14/22 16:00 10/14/22 15:50 98 Room Air 10/14/22 11:28 94 Room Air (1) Traumatic hematoma of abdominal wall Encounter type: initial encounter Qualified Code(s): S30.1XXA - Contusion of abdominal wall, initial encounter (2) Fall Encounter type: initial encounter Qualified Code(s): W19.XXXA - Unspecified fall, initial encounter (3) A-fib Atrial fibrillation type: longstanding persistent Qualified Code(s): I48.11 - Longstanding persistent atrial fibrillation
[2022-10-14] MEDS: DICLOFENAC SOD 1% GEL 100 GM TUBE EXT PRN (23:51)
[2022-10-15] MEDS: LEVOTHYROXINE SODIUM 75 MCG TABLET PO SCH (05:52)
[2022-10-15 06:01] LABS: Hematocrit (blood only) 34.4 % (42.0-52.0); Hemoglobin 11.6 g/dl (14.0-18.0); Mean Corpuscular Hemoglobin 31.1 pg (25.0-34.0); Mean Corpuscular Hgb Conc 33.7 g/dL (32.0-36.0); Mean Corpuscular Volume 92.2 fL (80.0-100.0); Mean Platelet Volume 9.9 fL (9.4-12.4); Platelet Count 343 K/uL (130-400); RDW Coefficient of Variation 15.7 % (11.5-14.5); Red Blood Count 3.73 M/uL (4.70-6.10); White Blood Count 8.62 K/ul (4.8-10.8)
[2022-10-15 06:23] LABS: Calcium 8.7 mg/dl (8.5-10.1); Creatinine Clr Calc Pharmacy 60.8 ml/min; Est GFR (African American) 93.1 ml/min; Est GFR (Non-African American) 80.3 ml/min; Potassium 3.4 mmol/L (3.5-5.1)
[2022-10-15] MEDS ORDERED: POTASSIUM CHLORIDE CRTAB 20 MEQ TABCR PO STA (07:53)
[2022-10-15] MEDS: INSULIN ASPART PER UNIT SC SCH ×4 (08:03→20:58)
[2022-10-15] MEDS: METOPROLOL TARTRATE 50 MG TAB PO SCH ×2 (08:06→20:30)
[2022-10-15] MEDS: ENALAPRIL MALEATE 10 MG TAB PO SCH (08:07)
[2022-10-15] MEDS: ADVANCED PROBIOTIC 1250 MG CAPSULE PO SCH (08:08)
[2022-10-15] MEDS: PANTOprazole 40 MG TAB PO SCH (08:09)
--- NOTE | 2022-10-15 18:33 | Hospitalist Progress Note ---
Date of Service October 15, 2022 Assessment & Plan (1) Traumatic hematoma of abdominal wall: Plan: Present on admission with abdominal pain Possible due to mechanical fall and being on coumadin CT abd/pelvis showed 11 x 7.6 x 5.2 cm left rectus sheath hematoma which demonstrates active arterial extravasation. This results in mild mass effect and rightward deviation of the bladder. There is a small amount of extraperitoneal hematoma anterior to the bladder which extends towards the left retroperitoneal space. admitting provider discussed case with IR at [facility] on admission- Recommended pelvic binder and to reverse INR. Continue to hold coumadin, continue abdominal binder Hgb stable at 11.6 Surgery on board If concern for hematoma expansion, would repeat CT A/P stat. If continues to bleed then would recommend IR embolization which would likely be performed at a tertiary center. Continue monitor H/H (2) Current use of detention anticoagulation: Plan: s/p coumadin reversal on 10/10 Continue to hold coumadin, INR 1.2 today Continue monitor PT/INR (3) Fall: Plan: Continue PT/OT PT recommended inpatient placement Continue fall precaution (4) A-fib: Plan: Rate controlled with metoprolol 50mg BID. Coumadin on hold Dysphagia Seems to occur with thin liquid Speech on board s/p bedside FEES done at bedside Speech recommended puree diet with nectar thick liquid Hypothyroidism TSH 2.6 Continue levothyroxine DVT ppx on SCDs due abdominal miranda hematoma CODE status Full code Disposition Waiting for placement Admission and Anticipated Discharge Date Admission Date: October 11, 2022 Subjective Pt was seen and examined for follow up Lying in bed with no acute distress He said that he feels OK Denies any chest pain, palpitation, dizziness and SOB Review of Systems Review of Systems: All systems reviewed & are unremarkable except as noted in Subjective Physical Exam Physical Exam: General- No acute distress, confused Head- atraumatic Eyes- PERRL, EOMI, ENT- oropharynx clear Neck- supple, no JVD Lungs- clear to auscultation Heart- irregular rhythm; no murmur Abdomen- normal bowel sounds, +abdominal binder Extremities- no calf tenderness Neuro- alert, awake, confused, PERRL, EOMI; no facial palsy; no dysarthria Skin- warm & dry Results & Data Results & [facility] ([facility]) Vital Signs (Past 12 Hours) Vital Signs Temp Pulse Pulse Resp BP Pulse Ox O2 Del Method 10/15/22 16:00 85 10/15/22 16:00 36.5 C 80 18 157/84 H 93 Room Air 10/15/22 12:11 36.8 C 77 18 143/78 H 97 Room Air 10/15/22 08:00 91 H 10/15/22 08:00 36.9 C 87 16 142/68 H 97 Room Air (1) Traumatic hematoma of abdominal wall Encounter type: initial encounter Qualified Code(s): S30.1XXA - Contusion of abdominal wall, initial encounter (2) Fall Encounter type: initial encounter Qualified Code(s): W19.XXXA - Unspecified fall, initial encounter (3) A-fib Atrial fibrillation type: longstanding persistent Qualified Code(s): I48.11 - Longstanding persistent atrial fibrillation
[2022-10-15] MEDS: DICLOFENAC SOD 1% GEL 100 GM TUBE EXT PRN (23:26)
[2022-10-16] MEDS: LEVOTHYROXINE SODIUM 75 MCG TABLET PO SCH (05:33)
[2022-10-16] MEDS: INSULIN ASPART PER UNIT SC SCH ×4 (07:44→20:25)
[2022-10-16] MEDS: ENALAPRIL MALEATE 10 MG TAB PO SCH (07:59)
[2022-10-16] MEDS: METOPROLOL TARTRATE 50 MG TAB PO SCH ×2 (08:00→20:26)
[2022-10-16] MEDS: ADVANCED PROBIOTIC 1250 MG CAPSULE PO SCH (08:00)
[2022-10-16] MEDS: PANTOprazole 40 MG TAB PO SCH (08:01)
--- NOTE | 2022-10-16 17:29 | Hospitalist Progress Note ---
Date of Service October 16, 2022 Assessment & Plan (1) Traumatic hematoma of abdominal wall: Plan: Present on admission with abdominal pain Possible due to mechanical fall and being on coumadin CT abd/pelvis showed 11 x 7.6 x 5.2 cm left rectus sheath hematoma which demonstrates active arterial extravasation. This results in mild mass effect and rightward deviation of the bladder. There is a small amount of extraperitoneal hematoma anterior to the bladder which extends towards the left retroperitoneal space. admitting provider discussed case with IR at [facility] on admission- Recommended pelvic binder and to reverse INR. Continue to hold coumadin, continue abdominal binder Hgb stable at 11.6 Surgery on board If concern for hematoma expansion, would repeat CT A/P stat. If continues to bleed then would recommend IR embolization which would likely be performed at a tertiary center. Continue monitor H/H (2) Current use of long-term anticoagulation: Plan: s/p coumadin reversal on 10/10 Continue to hold coumadin, INR 1.2 today Continue monitor PT/INR (3) Fall: Plan: Continue PT/OT PT recommended inpatient placement Continue fall precaution (4) A-fib: Plan: Rate controlled with metoprolol 50mg BID. Coumadin on hold Dysphagia Seems to occur with thin liquid Speech on board s/p bedside FEES done at bedside Speech recommended puree diet with nectar thick liquid Hypothyroidism TSH 2.6 Continue levothyroxine DVT ppx on SCDs due abdominal miranda hematoma CODE status Full code Disposition Waiting for placement Admission and Anticipated Discharge Date Admission Date: October 11, 2022 Subjective Pt was seen and examined for follow up Lying in bed with no acute distress Denies any chest pain, palpitation, dizziness and SOB Review of Systems Review of Systems: All systems reviewed & are unremarkable except as noted in Subjective Physical Exam Physical Exam: General- No acute distress, confused Head- atraumatic Eyes- PERRL, EOMI, ENT- oropharynx clear Neck- supple, no JVD Lungs- clear to auscultation Heart- irregular rhythm; no murmur Abdomen- normal bowel sounds, +abdominal binder Extremities- no calf tenderness Neuro- alert, awake, confused, PERRL, EOMI; no facial palsy; no dysarthria Skin- warm & dry Results & Data Results & Data ([facility]) Vital Signs (Past 12 Hours) Vital Signs Temp Pulse Pulse Resp BP Pulse Ox O2 Del Method 10/16/22 15:30 36.7 C 67 18 151/78 H 97 Room Air 10/16/22 16:00 80 10/16/22 12:28 36.7 C 78 16 148/81 H 98 Room Air 10/16/22 08:00 37.0 C 99 H 16 165/71 H 94 Room Air 10/16/22 07:12 93 H (1) Traumatic hematoma of abdominal wall Encounter type: initial encounter Qualified Code(s): S30.1XXA - Contusion of abdominal wall, initial encounter (2) Fall Encounter type: initial encounter Qualified Code(s): W19.XXXA - Unspecified fall, initial encounter (3) A-fib Atrial fibrillation type: longstanding persistent Qualified Code(s): I48.11 - Longstanding persistent atrial fibrillation
[2022-10-17] MEDS: ACETAMINOPHEN 325 MG TAB PO PRN (03:11)
[2022-10-17] MEDS: LEVOTHYROXINE SODIUM 75 MCG TABLET PO SCH (06:15)
[2022-10-17 07:07] LABS: Hematocrit (blood only) 34.5 % (42.0-52.0); Hemoglobin 11.8 g/dl (14.0-18.0); Mean Corpuscular Hemoglobin 31.1 pg (25.0-34.0); Mean Corpuscular Hgb Conc 34.2 g/dL (32.0-36.0); Mean Platelet Volume 10.1 fL (9.4-12.4); Platelet Count 402 K/uL (130-400); RDW Coefficient of Variation 15.5 % (11.5-14.5); RDW Standard Deviation 51.3 fL (36.4-46.3); Red Blood Count 3.79 M/uL (4.70-6.10); White Blood Count 8.48 K/ul (4.8-10.8)
[2022-10-17 07:25] LABS: BUN Creatinine Ratio 30.4 (10-20); Calcium 8.6 mg/dl (8.5-10.1); Creatinine Clr Calc Pharmacy 70.5 ml/min; Est GFR (African American) 98.9 ml/min; Est GFR (Non-African American) 85.4 ml/min; Potassium 3.5 mmol/L (3.5-5.1)
[2022-10-17] MEDS: INSULIN ASPART PER UNIT SC SCH ×4 (08:05→20:17)
[2022-10-17] MEDS: METOPROLOL TARTRATE 50 MG TAB PO SCH ×2 (09:01→19:47)
[2022-10-17] MEDS: ENALAPRIL MALEATE 10 MG TAB PO SCH (09:56)
[2022-10-17] MEDS: ADVANCED PROBIOTIC 1250 MG CAPSULE PO SCH (09:56)
[2022-10-17] MEDS: PANTOprazole 40 MG TAB PO SCH (09:57)
--- NOTE | 2022-10-17 15:49 | Hospitalist Progress Note ---
Date of Service October 17, 2022 Assessment & Plan (1) Traumatic hematoma of abdominal wall: Plan: Present on admission with abdominal pain Possible due to mechanical fall and being on coumadin CT abd/pelvis showed 11 x 7.6 x 5.2 cm left rectus sheath hematoma which demonstrates active arterial extravasation. This results in mild mass effect and rightward deviation of the bladder. There is a small amount of extraperitoneal hematoma anterior to the bladder which extends towards the left retroperitoneal space. admitting provider discussed case with IR at [place] on admission- Recommended pelvic binder and to reverse INR. Continue to hold coumadin, continue abdominal binder Hgb stable at 11.8 Surgery on board If concern for hematoma expansion, would repeat CT A/P stat. If continues to bleed then would recommend IR embolization which would likely be performed at a tertiary center. case discussed with surgery Dr. 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 Coumadin on hold Dysphagia Seems to occur with thin liquid Speech on board s/p bedside FEES done at bedside Speech recommended puree diet with nectar thick liquid Hypothyroidism TSH 2.6 Continue levothyroxine DVT ppx on SCDs due abdominal miranda hematoma CODE status Full code Disposition Waiting for placement Admission and Anticipated Discharge Date Admission Date: October 11, 2022 Subjective Pt was seen and examined for follow up Resting in bed with no acute distress Denies any chest pain, palpitation, dizziness and SOB Review of Systems Review of Systems: All systems reviewed & are unremarkable except as noted in Subjective Physical Exam Physical Exam: General- No acute distress, confused Head- atraumatic Eyes- PERRL, EOMI, ENT- oropharynx clear Neck- supple, no JVD Lungs- clear to auscultation Heart- irregular rhythm; no murmur Abdomen- normal bowel sounds, +abdominal binder Extremities- no calf tenderness Neuro- alert, awake, confused, PERRL, EOMI; no facial palsy; no dysarthria Skin- warm & dry Results & Data Results & Data ([facility]) Vital Signs (Past 12 Hours) Vital Signs Temp Pulse Pulse Resp BP Pulse Ox O2 Del Method 10/17/22 15:38 73 10/17/22 07:29 36.6 C 80 18 165/99 H 98 Room Air 10/17/22 04:50 36.9 C 91 H 16 151/92 H 98 Room Air (1) Traumatic hematoma of abdominal wall Encounter type: initial encounter Qualified Code(s): S30.1XXA - Contusion of abdominal wall, initial encounter (3) Fall Encounter type: initial encounter Qualified Code(s): W19.XXXA - Unspecified f all, initial encounter (4) A-fib Atrial fibrillation type: longstanding persistent Qualified Code(s): I48.11 - Longstanding persistent atrial fibrillation
[2022-10-17] MEDS: DICLOFENAC SOD 1% GEL 100 GM TUBE EXT PRN (22:38)
[2022-10-18] MEDS: LEVOTHYROXINE SODIUM 75 MCG TABLET PO SCH (06:09)
[2022-10-18 07:33] VITALS: O2SAT 96
[2022-10-18] MEDS: ENALAPRIL MALEATE 10 MG TAB PO SCH (08:25)
[2022-10-18] MEDS: ADVANCED PROBIOTIC 1250 MG CAPSULE PO SCH (08:25)
[2022-10-18] MEDS: PANTOprazole 40 MG TAB PO SCH (08:25)
[2022-10-18] MEDS: METOPROLOL TARTRATE 50 MG TAB PO SCH (08:25)
[2022-10-18] MEDS: INSULIN ASPART PER UNIT SC SCH ×2 (08:27→12:23)
[2022-10-18 09:33] LABS: Hematocrit (blood only) 35.8 % (42.0-52.0); Hemoglobin 12.1 g/dl (14.0-18.0); Mean Corpuscular Hemoglobin 30.9 pg (25.0-34.0); Mean Corpuscular Hgb Conc 33.8 g/dL (32.0-36.0); Mean Corpuscular Volume 91.3 fL (80.0-100.0); Mean Platelet Volume 10.1 fL (9.4-12.4); Platelet Count 469 K/uL (130-400); RDW Coefficient of Variation 15.9 % (11.5-14.5); RDW Standard Deviation 52.3 fL (36.4-46.3); Red Blood Count 3.92 M/uL (4.70-6.10); White Blood Count 7.84 K/ul (4.8-10.8)
[2022-10-18 09:50] LABS: BUN Creatinine Ratio 30.1 (10-20); Calcium 8.8 mg/dl (8.5-10.1); Creatinine Clr Calc Pharmacy 66.7 ml/min; Est GFR (African American) 96.7 ml/min; Est GFR (Non-African American) 83.4 ml/min; Potassium 3.5 mmol/L (3.5-5.1)
[2022-10-18 11:28] VITALS: BP 108/74; TEMP 97.9
[2022-10-18 15:10] VITALS: PULSE 75
[2022-10-18] MEDS ORDERED: WARFARIN SOD 5 MG TAB PO SCH (16:00)
[2022-10-19] MEDS ORDERED: WARFARIN SOD 2.5 MG TAB PO SCH (16:00)
== END 2022-10-18 16:56 | DRG 605 ==
LOC: ED 20:50 → SUATTDRO 10-11 00:44 → 1E 10-11 00:44 → 2S 10-12 06:11